=== PATIENT | female | born 1940 | race Caucasian/White ===

== ENCOUNTER 2016-11-03 05:54 | Day surgery (SDC) | payer MEDICARE, OTHER ==
[2016-11-03] MEDS ORDERED: DIPRIVAN 200 MG/20 ML IV ONE (05:55)
[2016-11-03] MEDS ORDERED: Lactated Ringers 1,000 ML IV SCH (06:30)
--- NOTE | 2016-11-03 08:27 | OP ---
SURGERY DATE/TIME: 11/03/2016714 PREOPERATIVE DIAGNOSIS: Follow up history of colon polyps. POSTOPERATIVE DIAGNOSES: 1) Normal colon. 2) Diffuse diverticulosis. 3) Poor bowel prep. PROCEDURE: Colonoscopy. SURGEON: Gera Lawrence M.D. ANESTHESIA: MAC. ESTIMATED BLOOD LOSS: None. SPECIMENS: None. DESCRIPTION OF PROCEDURE: After informed written consent was obtained, the patient was taken to the endoscopy suite. She underwent monitored anesthesia and digital rectal exam showed normal sphincter tone and no internal lesions. The scope was inserted into the rectum and sequentially the entire colonic mucosa was traversed. The exam was difficult due to the presence of stool and diffuse diverticulosis. The patient also had a long tortuous colon. The level of cecum was reached and verified with direct visualization of ileocecal valve. Upon withdrawal there were no gross mucosal abnormalities but again there was stool present throughout much of the exam. There were again no obvious lesions encountered. The scope was removed and the patient was transferred to the recovery room in good condition.
--- NOTE | 2016-11-03 09:56 | XRAY ---
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 Comparison: December 11, 2014. Portable apical lordotic chest less inflated again demonstrating normal heart, mediastinum, and lungs with stable right mid lung calcified granuloma. Bony thorax intact again with mild degenerative changes. Impression: Stable nonacute chest with chronic features.
[2016-11-03 10:17] VITALS: O2SAT 97
[2016-11-03 10:20] VITALS: BP 145/72; PULSE 80
[2016-11-05 14:25] LABS: Mitogen-NIL >10.00 IU/mL (>=0.50); TB-NIL <0.01 IU/mL (<=0.34); TuberculosisScr-Qferon-Gold Negative
== END 2016-11-03 10:30 | disposition home or self-care (01) ==
LOC: SDC 05:54
PROVIDERS: ATTEND Family Medicine
PROC: 0DJD8ZZ Inspection of Lower Intestinal Tract, Via Natural or Artificial Opening Endoscopic (ICD-10-PCS; principal; 2016-11-03)
DX: Z86.010 Personal history of colon polyps (principal); K57.30 Diverticulosis of large intestine without perforation or abscess without bleeding; E11.9 Type 2 diabetes mellitus without complications
CPT/HCPCS: 00810; 36415; 71010; 82962; 86480; 99100; J2704

== ENCOUNTER 2017-05-10 06:47 | Day surgery (SDC) | payer MEDICARE, OTHER ==
[2017-05-10] MEDS ORDERED: DIPRIVAN 200 MG/20 ML IV ONE (06:48)
[2017-05-10] MEDS ORDERED: Lactated Ringers 1,000 ML IV ONE (07:06)
[2017-05-10 07:30] VITALS: O2SAT 95
[2017-05-10] MEDS ORDERED: TETRACAINE 0.5% STERI-UNIT SOL OP ONE ×2 (08:00)
[2017-05-10] MEDS ORDERED: Ak-Dilate OPHTHALMIC*** 0.71 ML, Cyclogyl 1% OPHTH SOL 5 ML 0.71 ML, GATIFLOXACIN 0.5% ... OP ONE ×4 (08:00)
[2017-05-10] MEDS ORDERED: Lactated Ringers 1,000 ML IV SCH (08:00)
[2017-05-10] MEDS ORDERED: Zofran 4 MG/2 ML VIAL IV PRN (09:00)
[2017-05-10 12:50] VITALS: BP 166/64; PULSE 99
[2017-05-10] MEDS ORDERED: LIDOCAINE HCL 1% AMPUL 5 ML IJ ONE (13:30)
[2017-05-10] MEDS ORDERED: BSS 500 ML, Fortaz/Tazicef 1 GM** 0.2 G IO ONE ×2 (13:30)
[2017-05-10] MEDS ORDERED: BETADINE 5% OPHTHALMIC 30 ML OP ONE (13:30)
[2017-05-10] MEDS ORDERED: Epinephrine Preservative Free 1 MG/ML INTRAOP ONE (13:30)
--- NOTE | 2017-05-10 14:47 | OP ---
DATE/TIME OF OPERATION: 05/10/2017 0855 TIME DICTATED: 1247 PREOPERATIVE DIAGNOSIS: Senile cataract of left eye. POSTOPERATIVE DIAGNOSIS: Senile cataract of left eye. SURGEON: Edward Lovelace MD ORACLE ADF CONSULTANT: None. OPERATION: Cataract extraction of left eye with an intraocular lens implant. STANDARD __X___ COMPLEX ANESTHESIA: MAC. ___X___ Monitored anesthesia care in combination with topical and intra-cameral anesthesia (because of the established specific risk of reflux, arrhythmias, or an anxiety attack associated with ocular manipulation as well as difficulty of the sales assistants and salespersons to manage such potentially catastrophic events while simultaneously attempting to complete the surgical procedure, it was deemed necessary for the patient's safety to have an anesthesiologist or a nurse timber incisor operator present during the procedure whenever possible. The anesthesiologist or the nurse timber incisor operator was utilized to monitor and regulate the intravenous sedation of the patient, so the patient was cooperative, relaxed, and comfortable). Topical anesthesia using Tetracaine eye drops together with intra cameral anesthesia using Lidocaine 1% MPF. The nurse was utilized to monitor the patient. ANESTHESIA PROVIDER: Brennan Hewitt CRNA. COMPLICATIONS: None. BLOOD LOSS: None. INDICATIONS: The patient is undergoing cataract surgery in the hopes of eliminating the visual complaints and difficulty. PROCEDURE: After arriving at the facility's outpatient surgery area, an IV was started; the patient was given 5 mg of p.o. Versed. (If an anesthesia provider was not monitoring the patient) The patient was then given topical anesthetic Tetracaine eye drops. A cotton pellet was soaked into a solution of a combination of Zymaxid 0.5%, Edwardo-Synephrine 2.5% and Ocufen (other drops might have been substituted referenced in the patient's record). The pellet was inserted by the RN into the lower conjunctival cul-de-sac with a sterile forceps and left for 20 minutes. The pellet was then removed by the RN with a sterile forceps before taking the patient to the operating room. The preoperative area nurse identified the patient and marked the correct eye to be operated on. I identified the correct eye to be operated on and marked it appropriately in the outpatient surgery area. The patient was then taken into the operating room. Tetracaine eye drops were installed again in the correct eye. The eyelids and the lashes and the lid margins were scrubbed with Betadine solution. One drop of the diluted Betadine solution was placed in the conjunctival cul-de-sac for 45 seconds and then was irrigated. A drop of Tetracaine Gel was placed in the conjunctival cul-de-sac. The patient's forehead was taped to secure it during the procedure. The patient was monitored. The patient was then draped in the usual way for this procedure. An eye speculum was used to separate the eyelids. The eye was then fixated and a temporal 2.5 mm incision was made in the clear cornea temporally at the limbus. Through the incision, 0.25 cc of 1% non-preserved lidocaine was injected into the anterior chamber for intracameral anesthesia. The anterior chamber was then filled with viscoelastic. The pupil was small. I felt that it would be safer to mechanically dilate the pupil. A Malyugin ring was used at this point which dilated the pupil. That was removed at the end of the procedure prior to aspiration of the viscoelastic from the anterior chamber and posterior to the intraocular lens implant. The cataract had a great amount of cortical changes. That rendered seeing the anterior capsule difficult for a safe performance of an anterior capsulotomy. I injected an air bubble into the anterior chamber. I then injected 1 ML of vision blue solution into the anterior chamber. The vision blue solution was irrigated from the anterior chamber after 30 seconds. The anterior capsule was stained which facilitated performing the anterior capsulotomy safely. After that was completed, a cystotome was introduced into the anterior chamber and a round anterior capsulotomy was performed. The capsule was removed by a forceps. Hydrodissection was next carried utilizing a 25-gauge cannula and balanced salt solution to delineate the cortical material from the capsule and the nucleus from the cortical material. The nucleus was rotated freely into the capsular bag with no difficulty. The phaco tip of the [employer] Phacoemulsifier was introduced into the anterior chamber and two grooves were made into the nucleus 90 degrees apart. Using two spatulas resulted into the nucleus being fractured into four quadrants. The phaco tip was then used to remove each quadrant of the nucleus. Viscoelastic was used during this process to protect the corneal endothelium. Once the entire nucleus was removed, the phaco tip then was removed and the irrigation tip was introduced into the eye and the cortex was removed. The posterior capsule was polished. It was noticed that there was a tear into the posterior capsule with few vitreous strands into the pupil plan. An anterior vitrectomy was performed. A 27.50 diopter, SN60WF, posterior chamber lens implant, was inspected and found to be grossly normal. The implant was inserted into the implant injector cartridge; Viscoelastic again was introduced into the anterior chamber, which filled the capsular bag. The implant injector's cartridge tip was placed at the limbal wound and the posterior chamber implant was released into the capsular bag and rotated appropriately. The implant was found to be into the capsular bag and it was centered. __X___ 0.2 ml of Tri-Moxi was introduced via 27 gauge cannula into the vitreous cavity through the ciliary processes. Viscoelastic was aspirated from the anterior chamber and posterior to the intraocular lens implant from the capsular bag using the irrigating tip. The anterior chamber was irrigated and filled with 5 cc antibiotic solution (500 cc of BSS plus 2 ml of Fortaz 100 mg/ml) ( if patient was not allergic to the medication). The lips of the corneal incision were hydrated using BSS solution. The anterior chamber was checked and found to be water tight. One drop each of antibiotic, steroid and NSAID drops (refer to chart for drops used) were placed in the conjunctival cul-de-sac of the operated eye. Patient tolerated the procedure quite well and left the operating room in satisfactory condition. DISCHARGE SUMMARY: The patient was released in stable condition. The patient and those with the patient were given an instruction sheet as of how to care for the eye after surgery as well as counseling on any abnormal laboratory studies by the postoperative RN. The patient was also given an appointment card for follow-up in the office and is to call immediately for any difficulties including but not limited to pain in the eye, decreased vision, discharge from the eye, headache and or fever. DISCHARGE DIAGNOSIS: Pseudophakia of left eye.
== END 2017-05-10 10:30 | disposition home or self-care (01) ==
LOC: SDC 06:47
PROVIDERS: ATTEND Ophthalmology
PROC: 08RK3JZ Replacement of Left Lens with Synthetic Substitute, Percutaneous Approach (ICD-10-PCS; principal; 2017-05-10)
DX: H25.9 Unspecified age-related cataract (principal); E11.9 Type 2 diabetes mellitus without complications; E78.00 Pure hypercholesterolemia, unspecified; I10 Essential (primary) hypertension; K21.9 Gastro-esophageal reflux disease without esophagitis
CPT/HCPCS: 82962; 66984; C1780; 99100; J0171; J2704; A9270-GY

== ENCOUNTER 2017-06-07 07:05 | Day surgery (SDC) | payer MEDICARE, OTHER ==
[~2017-06-07 07:05] MED LIST: Lactated Ringers 1,000 ML IV SCH
[2017-06-07] MEDS ORDERED: DIPRIVAN 200 MG/20 ML IV ONE (07:06)
[2017-06-07] MEDS ORDERED: Lactated Ringers 1,000 ML IV ONE (07:10)
[2017-06-07] MEDS ORDERED: Ak-Dilate OPHTHALMIC*** 0.71 ML, Cyclogyl 1% OPHTH SOL 5 ML 0.71 ML, GATIFLOXACIN 0.5% ... OP ONE ×4 (08:00)
[2017-06-07] MEDS ORDERED: TETRACAINE 0.5% STERI-UNIT SOL OP ONE ×2 (08:00)
[2017-06-07] MEDS ORDERED: Lactated Ringers 1,000 ML IV SCH (08:00)
[2017-06-07] MEDS ORDERED: Zofran 4 MG/2 ML VIAL IV PRN (09:00)
[2017-06-07] MEDS ORDERED: LIDOCAINE HCL 1% AMPUL 5 ML IJ ONE (10:00)
[2017-06-07] MEDS ORDERED: BSS 500 ML, Fortaz/Tazicef 1 GM** 0.2 G IO ONE ×2 (10:00)
[2017-06-07] MEDS ORDERED: BETADINE 5% OPHTHALMIC 30 ML OP ONE (10:00)
[2017-06-07] MEDS ORDERED: Epinephrine Preservative Free 1 MG/ML INTRAOP ONE (10:00)
[2017-06-07 10:29] VITALS: O2SAT 98
[2017-06-07 10:50] VITALS: BP 153/70; PULSE 98
--- NOTE | 2017-06-07 15:09 | OP ---
DATE/TIME OF OPERATION: 06/07/2017 0931 TIME DICTATED: 1321 PREOPERATIVE DIAGNOSIS: Senile cataract of right eye. POSTOPERATIVE DIAGNOSIS: Senile cataract of right eye. SURGEON: Edward Lovelace MD GENOMICS SCIENTIST: None. OPERATION: Cataract extraction of right eye with an intraocular lens implant. STANDARD COMPLEX ___X___ ANESTHESIA: MAC. ___X___ Monitored anesthesia care in combination with topical and intra-cameral anesthesia (because of the established specific risk of reflux, arrhythmias, or an anxiety attack associated with ocular manipulation as well as difficulty of the equipment maintenance tech to manage such potentially catastrophic events while simultaneously attempting to complete the surgical procedure, it was deemed necessary for the patient's safety to have an anesthesiologist or a nurse honest john rocket crew member present during the procedure whenever possible. The anesthesiologist or the nurse honest john rocket crew member was utilized to monitor and regulate the intravenous sedation of the patient, so the patient was cooperative, relaxed, and comfortable). Topical anesthesia using Tetracaine eye drops together with intra cameral anesthesia using Lidocaine 1% MPF. The nurse was utilized to monitor the patient. ANESTHESIA PROVIDER: Jeffry Mahajan CRNA. COMPLICATIONS: None. BLOOD LOSS: None. INDICATIONS: The patient is undergoing cataract surgery in the hopes of eliminating the visual complaints and difficulty. PROCEDURE: After arriving at the facility's outpatient surgery area, an IV was started; the patient was given 5 mg of p.o. Versed. (If an anesthesia provider was not monitoring the patient) The patient was then given topical anesthetic Tetracaine eye drops. A cotton pellet was soaked into a solution of a combination of Zymaxid 0.5%, Edwardo-Synephrine 2.5% and Ocufen (other drops might have been substituted referenced in the patient's record). The pellet was inserted by the RN into the lower conjunctival cul-de-sac with a sterile forceps and left for 20 minutes. The pellet was then removed by the RN with a sterile forceps before taking the patient to the operating room. The preoperative area nurse identified the patient and marked the correct eye to be operated on. I identified the correct eye to be operated on and marked it appropriately in the outpatient surgery area. The patient was then taken into the operating room. Tetracaine eye drops were installed again in the correct eye. The eyelids and the lashes and the lid margins were scrubbed with Betadine solution. One drop of the diluted Betadine solution was placed in the conjunctival cul-de-sac for 45 seconds and then was irrigated. A drop of Tetracaine Gel was placed in the conjunctival cul-de-sac. The patient's forehead was taped to secure it during the procedure. The patient was monitored. The patient was then draped in the usual way for this procedure. An eye speculum was used to separate the eyelids. The eye was then fixated and a temporal 2.5 mm incision was made in the clear cornea temporally at the limbus. Through the incision, 0.25 cc of 1% non-preserved lidocaine was injected into the anterior chamber for intracameral anesthesia. The anterior chamber was then filled with viscoelastic. ___X__ The pupil was small. I felt that it would be safer to mechanically dilate the pupil. A Malyugin ring was used at this point which dilated the pupil. That was removed at the end of the procedure prior to aspiration of the viscoelastic from the anterior chamber and posterior to the intraocular lens implant. The cataract had a great amount of cortical changes. That rendered seeing the anterior capsule difficult for a safe performance of an anterior capsulotomy. I injected an air bubble into the anterior chamber. I then injected 1 ML of vision blue solution into the anterior chamber. The vision blue solution was irrigated from the anterior chamber after 30 seconds. The anterior capsule was stained which facilitated performing the anterior capsulotomy safely. After that was completed, a cystotome was introduced into the anterior chamber and a round anterior capsulotomy was performed. The capsule was removed by a forceps. Hydrodissection was next carried utilizing a 25-gauge cannula and balanced salt solution to delineate the cortical material from the capsule and the nucleus from the cortical material. The nucleus was rotated freely into the capsular bag with no difficulty. The phaco tip of the [place] [employer] Phacoemulsifier was introduced into the anterior chamber and two grooves were made into the nucleus 90 degrees apart. Using two spatulas resulted into the nucleus being fractured into four quadrants. The phaco tip was then used to remove each quadrant of the nucleus. Viscoelastic was used during this process to protect the corneal endothelium. Once the entire nucleus was removed, the phaco tip then was removed and the irrigation tip was introduced into the eye and the cortex was removed. The posterior capsule was polished. It was noticed that there was a tear into the posterior capsule with few vitreous strands into the pupil plan. An anterior vitrectomy was performed. A 26.00 diopter, SN60WF, posterior chamber lens implant, was inspected and found to be grossly normal. The implant was inserted into the implant injector cartridge; Viscoelastic again was introduced into the anterior chamber, which filled the capsular bag. The implant injector's cartridge tip was placed at the limbal wound and the posterior chamber implant was released into the capsular bag and rotated appropriately. The implant was found to be into the capsular bag and it was centered. __X___ 0.2 ml of Tri-Moxi was introduced via 27 gauge cannula into the vitreous cavity through the ciliary processes. Viscoelastic was aspirated from the anterior chamber and posterior to the intraocular lens implant from the capsular bag using the irrigating tip. The anterior chamber was irrigated and filled with 5 cc antibiotic solution (500 cc of BSS plus 2 ml of Fortaz 100 mg/ml) ( if patient was not allergic to the medication). The lips of the corneal incision were hydrated using BSS solution. The anterior chamber was checked and found to be water tight. One drop each of antibiotic, steroid and NSAID drops (refer to chart for drops used) were placed in the conjunctival cul-de-sac of the operated eye. Patient tolerated the procedure quite well and left the operating room in satisfactory condition. DISCHARGE SUMMARY: The patient was released in stable condition. The patient and those with the patient were given an instruction sheet as of how to care for the eye after surgery as well as counseling on any abnormal laboratory studies by the postoperative RN. The patient was also given an appointment card for follow-up in the office and is to call immediately for any difficulties including but not limited to pain in the eye, decreased vision, discharge from the eye, headache and or fever. DISCHARGE DIAGNOSIS: Pseudophakia of right eye.
== END 2017-06-07 11:05 | disposition home or self-care (01) ==
LOC: SDC 07:05
PROVIDERS: ATTEND Ophthalmology
PROC: 08RJ3JZ Replacement of Right Lens with Synthetic Substitute, Percutaneous Approach (ICD-10-PCS; principal; 2017-06-07)
PROC: 08B43ZZ Excision of Right Vitreous, Percutaneous Approach (ICD-10-PCS; 2017-06-07)
DX: H25.9 Unspecified age-related cataract (principal); E11.9 Type 2 diabetes mellitus without complications; Z79.4 Long term (current) use of insulin; E78.00 Pure hypercholesterolemia, unspecified
CPT/HCPCS: 66982; 67005; 82962; C1780; 99100; J0171; J2704; A9270-GY

== ENCOUNTER 2018-01-15 18:11 | Observation (INO) | payer MEDICARE ==
--- NOTE | 2018-01-15 18:44 | ERPHSYRPT ---
- History of Present Illness Historian: patient, family (daughter) Exam Limitations: no limitations Patient Subjective Stated Complaint: pt here for n/v/d , higher blood sugars but pt is on predinsone for pain in legs, sob worse with excertion, Triage Nursing Assessment: pt alert, resp easy, chest clear, abd soft. no edema Timing/Duration: today, gradual onset, worse Activities at Onset: none Quality: aching, cramping Abdominal Pain Onset Location: epigastric Pain Radiation: no radiation Severity of Pain-Max: mild Severity of Pain-Current: mild Modifying Factors: Improves With: defecating, vomiting Associated Symptoms: diarrhea, nausea, vomiting, weakness Previous symptoms: no prior history Hx Influenza Vaccination/Date Given: Yes Hx Pneumococcal Vaccination/Date Given: Yes Immunizations Up to Date: Yes <RAVEN SHELDON - Last Filed: 01/15/18 19:02> <EVANS GONZALEZ - Last Filed: 01/15/18 20:14> - History of Present Illness Time Seen by Provider: 01/15/18 18:31 Physician History: The patient is a 77-year-old female brought in by her daughter from home where this morning she woke up at 4 AM with a blood sugar of 32. She tried to get her blood sugar up. Later in the morning she was nauseated and vomited. She has vomited several times today. She also has some watery stools. Her abdomen is uncomfortable and feels crampy at times. Her daughter states that she has some labored breathing. She has lightheadedness upon standing. She denies chest pain. She denies fever. She has been on prednisone for several months for muscle pain. She is now down to 8 mg of prednisone daily. Her past medical history is significant for HTN, diabetes, high cholesterol. She has a tubal ligation. (RAVEN SHELDON) Allergies/Adverse Reactions: Sulfa (Sulfonamide Antibiotics) Allergy (Severe, Verified 01/15/18 18:26) Rash Home Medications: Aspirin EC 81 mg [Ecotrin 81 mg] 81 mg PO DAILY 11/02/16 [History] Ca Citrate/Mgox/Vit D3/B6/Min [Citracal Plus Tablet] 1 each PO DAILY 11/02/16 [ History] Cyanocobalamin (Vitamin B-12) [B-12] 1,000 mcg PO DAILY 11/02/16 [History] Esomeprazole Magnesium [Nexium] 20 mg PO DAILY 11/02/16 [History] Insulin Aspart [Novolog Flexpen] 10 unit SQ TIDWMEALS 11/02/16 [History] Insulin Detemir [Levemir Flextouch] 55 unit SQ HS 11/02/16 [History] Losartan Potassium 50 mg [Cozaar 50 MG] 50 mg PO BID 11/02/16 [History] Multivitamin [Multi-Vitamin Daily] 1 ea PO DAILY 11/02/16 [History] Raloxifene HCl 60 mg [Evista 60 MG] 60 mg PO DAILY 11/02/16 [History] Rosuvastatin Calcium [Crestor] 10 mg PO HS 11/02/16 [History] Gabapentin 300 mg PO TID 05/09/17 [History] - Review of Systems Constitutional: No Fever, No Chills Eyes: No Symptoms Ears, Nose, & Throat: No Symptoms Respiratory: No Cough, No Dyspnea Cardiac: No Chest Pain, No Edema, No Syncope Abdominal/Gastrointestinal: Abdominal Pain, Nausea, Vomiting, Diarrhea Genitourinary Symptoms: No Dysuria Musculoskeletal: No Back Pain, No Neck Pain Skin: No Rash Neurological: No Dizziness, No Focal Weakness, No Sensory Changes Psychological: No Symptoms Endocrine: No Symptoms Hematologic/Lymphatic: No Symptoms Immunological/Allergic: No Symptoms All Other Systems: Reviewed and Negative <RAVEN SHELDON - Last Filed: 01/15/18 19:02> - Past Medical History Pertinent Past Medical History: Yes Neurological History: No Pertinent History ENT History: Cataracts Cardiac History: High Cholesterol, Hypertension Respiratory History: No Pertinent History Endocrine Medical History: Diabetes Type II Musculoskeletal History: Arthritis GI Medical History: GERD, Hernia History: Other Psycho-Social History: No Pertinent History Female Reproductive Disorders: No Pertinent History Other Medical History: urinary incontinence - Past Surgical History Past Surgical History: Yes Neuro Surgical History: No Pertinent History Cardiac: No Pertinent History Respiratory: No Pertinent History Gastrointestinal: No Pertinent History Genitourinary: No Pertinent History Musculoskeletal: Other Female Surgical History: Tubal Ligation Other Surgical History: back,hand, egd with dilitation, bilateral feet - Social History Smoking Status: Former smoker Exposure to second hand smoke: No Drug Use: none Patient Lives Alone: No - Female History Hx Last Menstrual Period: post Hx Now: No <RAVEN SHELDON - Last Filed: 01/15/18 19:02> - Physical Exam General Appearance: mild distress Eye Exam: PERRL/EOMI, eyes nml inspection Ears, Nose, Throat Exam: normal ENT inspection, pharynx normal, moist mucous membranes Neck Exam: normal inspection, non-tender, supple, full range of motion Respiratory Exam: normal breath sounds, lungs clear, No respiratory distress Cardiovascular Exam: regular rate/rhythm, normal heart sounds Gastrointestinal/Abdomen Exam: tenderness (epigastric) Pelvic Exam: not done Rectal Exam: not done Back Exam: normal inspection, normal range of motion, No CVA tenderness, No vertebral tenderness Extremity Exam: normal inspection, normal range of motion, pelvis stable Neurologic Exam: alert, oriented x 3, cooperative, normal mood/affect, nml cerebellar function, sensation nml, No motor deficits Skin Exam: normal color, warm, dry SpO2 Interpretation: normal SpO2: 94 Oxygen Delivery: Room Air <RAVEN SHELDON - Last Filed: 01/15/18 19:02> - Nursing Vital Signs Nursing Vital Signs: Initial Vital Signs Temperature 97.4 F 01/15/18 18:19 Pulse Rate 130 H 01/15/18 18:19 Respiratory Rate 24 01/15/18 18:19 Blood Pressure 132/72 01/15/18 18:19 O2 Sat by Pulse Oximetry 94 L 01/15/18 18:19 Pain Scale Pain Intensity 5 - Course EKG Interpreted by Me: RATE, Sinus Tach, Left [place] Deviation, LAFB, NORMAL INTERVALS, NORMAL QRS, NORMAL ST-T, Other (comp EKG 08/13/13.) <RAVEN SHELDON - Last Filed: 01/15/18 19:02> - Course Nursing assessment & vital signs reviewed: Yes <EVANS GONZALEZ - Last Filed: 01/15/18 20:14> Ordered Tests: Active Orders 24 hr Category Date Time Status ACCUCHECK [Accucheck] STAT Care 01/15/18 18:49 Active Clean Catch Urine Specimen STAT Care 01/15/18 18:47 Active EKG-ER Only STAT Care 01/15/18 18:47 Active IV Insertion STAT Care 01/15/18 18:47 Active Orthostatic Vital Signs STAT Care 01/15/18 18:49 Active CHEST 2 VIEWS (PA AND LAT) Stat Exams 01/15/18 18:48 Taken KUB Stat Exams 01/15/18 18:48 Taken ARTERIAL BLOOD GASES Urgent Lab 01/15/18 19:05 Completed CBC W DIFF Stat Lab 01/15/18 18:45 Completed CMP Stat Lab 01/15/18 18:45 Completed CULTURE,URINE Stat Lab 01/15/18 19:35 Received D-DIMER QUANTITATION Stat Lab 01/15/18 18:45 Completed LIPASE Stat Lab 01/15/18 18:45 Completed Lactic Acid Stat Lab 01/15/18 19:05 Completed Manual Differential NC Stat Lab 01/15/18 18:45 Completed PROTIME WITH INR Stat Lab 01/15/18 18:45 Completed TROPONIN Q3H Lab 01/15/18 18:45 Completed TROPONIN Q3H Lab 01/15/18 22:00 Ordered TROPONIN Q3H Lab 01/16/18 01:00 Ordered TROPONIN Q3H Lab 01/16/18 04:00 Ordered TROPONIN Q3H Lab 01/16/18 07:00 Ordered UA W/RFX UR CULTURE Stat Lab 01/15/18 19:35 Completed Transfer Order Routine Transfer 01/15/18 Ordered Medication Summary Generic Name Dose Route Start Last Admin Trade Name Freq PRN Reason Stop Dose Admin Ceftriaxone Sodium/Dextrose 1 g in 50 mls @ 100 mls/hr 01/15/18 19:56 20:02 Rocephin 1 Gm-D5w 50 Ml Bag IV 01/15/18 20:25 100 mls/hr STAT STA 100 mls/hr Administration Discontinued Medications Generic Name Dose Route Start Last Admin Trade Name Freq PRN Reason Stop Dose Admin Famotidine 20 mg 01/15/18 18:47 01/15/18 19:09 Pepcid 20 Mg Vial IV 01/15/18 18:48 20 mg STAT ONE Administration Famotidine Confirm 01/15/18 19:06 Pepcid 20 Mg Vial Administered 01/15/18 19:07 Dose 20 mg IV .STK-MED ONE Sodium Chloride 1,000 mls @ 999 mls/hr 01/15/18 18:47 01/15/18 19:09 Sodium Chloride 0.9% 1000 Ml IV 01/15/18 19:47 999 mls/hr .Q1H1M STA Administration Sodium Chloride Confirm 01/15/18 19:06 Sodium Chloride 0.9% 1000 Ml Administered 01/15/18 19:07 Dose 1,000 mls @ ud .ROUTE .STK-MED ONE Ceftriaxone Sodium/Dextrose Confirm 01/15/18 19:59 Rocephin 1 Gm-D5w 50 Ml Bag Administered 01/15/18 20:00 Dose 1 g in 50 mls @ ud IV .STK-MED ONE Levofloxacin 500 mg 01/15/18 20:06 Levofloxacin 250mg Tablet PO 01/15/18 20:07 STAT ONE Ondansetron HCl 4 mg 01/15/18 18:47 01/15/18 19:09 Zofran 4 Mg/2 Ml Vial IV 01/15/18 18:48 4 mg STAT ONE Administration Ondansetron HCl Confirm 01/15/18 19:06 Zofran 4 Mg/2 Ml Vial Administered 01/15/18 19:07 Dose 4 mg .ROUTE .STK-MED ONE Lab/Rad Data: Laboratory Result Diagrams 01/15/18 18:45 01/15/18 18:45 Laboratory Results 01/15/18 01/15/18 01/15/18 Range/Units 19:35 19:05 19:05 WBC (4.0-10.5) K/mm3 RBC (4.1-5.4) M/mm3 Hgb (12.0-16.0) gm/dl Hct (35-47) % MCV (78-100) fl MCH (26-32) pg MCHC (32-36) g/dl RDW (11.5-14.0) % Plt Count (150-450) K/mm3 MPV (6-9.5) fl Gran % (36.0-66.0) % Eos # (Auto) (0-0.5) Absolute Lymphs (auto) (1.0-4.6) Absolute Monos (auto) (0.0-1.3) Lymphocytes % (24.0-44.0) % Monocytes % (0.0-12.0) % Eosinophils % (0.00-5.0) % Basophils % (0.0-0.4) % Absolute Granulocytes (1.4-6.9) Basophils # (0-0.4) PT (9.95-12.35) SECONDS INR (0.8-3.0) D-Dimer (215-500) ng/mL Puncture Site LEFT RADIAL pCO2 35 (35-45) mmHg pO2 63 L (75-100) mmHg Base Excess 2.8 H (-2.0-2.0) O2 Saturation 93.5 L (94-100) g/dF ABG pH 7.48 H (7.35-7.45) ABG HCO3 26.1 (22-28) ABG O2 Sat (Measured) 95.6 (95-100) % Miguel Test YES A-a Gradient 43 a/A Ratio 0.59 Hemoglobin 14.2 Carboxyhemoglobin 1.6 (0.0-6.9) % THgb Methemoglobin 0.7 L (1.4-1.5) % Temperature 37.0 C POC O2 Flow Rate 21 % Sodium (137-145) mmol/L Potassium 3.9 (3.5-5.1) mmol/L Chloride (98-107) mmol/L Carbon Dioxide (22-30) mmol/L Anion Gap (5-15) MEQ/L BUN (7-17) mg/dL Creatinine (0.52-1.04) mg/dL Estimated GFR ML/MIN Glucose (74-106) mg/dL Lactic Acid 1.6 (0.4-2.0) Calcium (8.4-10.2) mg/dL Total Bilirubin (0.2-1.3) mg/dL AST (14-36) U/L ALT (0-35) U/L Alkaline Phosphatase (38-126) U/L Troponin I (0.000-0.034) ng/mL Serum Total Protein (6.3-8.2) g/dL Albumin (3.5-5.0) g/dL Lipase (23-300) U/L Urine Color YELLOW (YELLOW) Urine Appearance CLOUDY (CLEAR) Urine pH 6.0 (5-6) Ur Specific Shirley 1.009 (1.005-1.025) Urine Protein NEGATIVE (Negative) Urine Ketones NEGATIVE (NEGATIVE) Urine Blood MODERATE (0-5) Luís/ul Urine Nitrite POSITIVE (NEGATIVE) Urine Bilirubin NEGATIVE (NEGATIVE) Urine Urobilinogen NEGATIVE (0-1) mg/dL Ur Leukocyte Esterase LARGE (NEGATIVE) Urine WBC (Auto) >100 (0-5) /HPF Urine RBC (Auto) 26-50 (0-2) /HPF U Epithel Cells (Auto) NONE (FEW) /HPF Urine Bacteria (Auto) MODERATE (NEGATIVE) /HPF Unidentified Crystals 25-50 (NEGATIVE) /HPF Other Casts (Auto) 5-10 (NEGATIVE) /LPF Urine Mucus (Auto) MODERATE (NEGATIVE) /HPF Urine Culture Reflexed YES (NO) Urine Glucose NEGATIVE (NEGATIVE) mg/dL 01/15/18 01/15/18 01/15/18 Range/Units 18:45 18:45 18:45 WBC (4.0-10.5) K/mm3 RBC (4.1-5.4) M/mm3 Hgb (12.0-16.0) gm/dl Hct (35-47) % MCV (78-100) fl MCH (26-32) pg MCHC (32-36) g/dl RDW (11.5-14.0) % Plt Count (150-450) K/mm3 MPV (6-9.5) fl Gran % (36.0-66.0) % Eos # (Auto) (0-0.5) Absolute Lymphs (auto) (1.0-4.6) Absolute Monos (auto) (0.0-1.3) Lymphocytes % (24.0-44.0) % Monocytes % (0.0-12.0) % Eosinophils % (0.00-5.0) % Basophils % (0.0-0.4) % Absolute Granulocytes (1.4-6.9) Basophils # (0-0.4) PT 13.0 H (9.95-12.35) SECONDS INR 1.12 (0.8-3.0) D-Dimer 412 (215-500) ng/mL Puncture Site pCO2 (35-45) mmHg pO2 (75-100) mmHg Base Excess (-2.0-2.0) O2 Saturation (94-100) g/dF ABG pH (7.35-7.45) ABG HCO3 (22-28) ABG O2 Sat (Measured) (95-100) % Miguel Test A-a Gradient a/A Ratio Hemoglobin Carboxyhemoglobin (0.0-6.9) % THgb Methemoglobin (1.4-1.5) % Temperature C POC O2 Flow Rate % Sodium (137-145) mmol/L Potassium (3.5-5.1) mmol/L Chloride (98-107) mmol/L Carbon Dioxide (22-30) mmol/L Anion Gap (5-15) MEQ/L BUN (7-17) mg/dL Creatinine (0.52-1.04) mg/dL Estimated GFR ML/MIN Glucose (74-106) mg/dL Lactic Acid (0.4-2.0) Calcium (8.4-10.2) mg/dL Total Bilirubin (0.2-1.3) mg/dL AST (14-36) U/L ALT (0-35) U/L Alkaline Phosphatase (38-126) U/L Troponin I < 0.012 (0.000-0.034) ng/mL Serum Total Protein (6.3-8.2) g/dL Albumin (3.5-5.0) g/dL Lipase (23-300) U/L Urine Color (YELLOW) Urine Appearance (CLEAR) Urine pH (5-6) Ur Specific Shirley (1.005-1.025) Urine Protein (Negative) Urine Ketones (NEGATIVE) Urine Blood (0-5) Luís/ul Urine Nitrite (NEGATIVE) Urine Bilirubin (NEGATIVE) Urine Urobilinogen (0-1) mg/dL Ur Leukocyte Esterase (NEGATIVE) Urine WBC (Auto) (0-5) /HPF Urine RBC (Auto) (0-2) /HPF U Epithel Cells (Auto) (FEW) /HPF Urine Bacteria (Auto) (NEGATIVE) /HPF Unidentified Crystals (NEGATIVE) /HPF Other Casts (Auto) (NEGATIVE) /LPF Urine Mucus (Auto) (NEGATIVE) /HPF Urine Culture Reflexed (NO) Urine Glucose (NEGATIVE) mg/dL 01/15/18 01/15/18 Range/Units 18:45 18:45 WBC 26.7 H* (4.0-10.5) K/mm3 RBC 4.30 (4.1-5.4) M/mm3 Hgb 13.6 (12.0-16.0) gm/dl Hct 40.1 (35-47) % MCV 93.3 (78-100) fl MCH 31.6 (26-32) pg MCHC 33.9 (32-36) g/dl RDW 12.9 (11.5-14.0) % Plt Count 246 (150-450) K/mm3 MPV 10.1 H (6-9.5) fl Gran % 79.2 H (36.0-66.0) % Eos # (Auto) 0.34 (0-0.5) Absolute Lymphs (auto) 3.65 (1.0-4.6) Absolute Monos (auto) 1.53 H (0.0-1.3) Lymphocytes % 13.7 L (24.0-44.0) % Monocytes % 5.7 (0.0-12.0) % Eosinophils % 1.3 (0.00-5.0) % Basophils % 0.1 (0.0-0.4) % Absolute Granulocytes 21.17 H (1.4-6.9) Basophils # 0.03 (0-0.4) PT (9.95-12.35) SECONDS INR (0.8-3.0) D-Dimer (215-500) ng/mL Puncture Site pCO2 (35-45) mmHg pO2 (75-100) mmHg Base Excess (-2.0-2.0) O2 Saturation (94-100) g/dF ABG pH (7.35-7.45) ABG HCO3 (22-28) ABG O2 Sat (Measured) (95-100) % Miguel Test A-a Gradient a/A Ratio Hemoglobin Carboxyhemoglobin (0.0-6.9) % THgb Methemoglobin (1.4-1.5) % Temperature C POC O2 Flow Rate % Sodium 138 (137-145) mmol/L Potassium 4.2 (3.5-5.1) mmol/L Chloride 103 (98-107) mmol/L Carbon Dioxide 26 (22-30) mmol/L Anion Gap 12.7 (5-15) MEQ/L BUN 14 (7-17) mg/dL Creatinine 0.78 (0.52-1.04) mg/dL Estimated GFR > 60.0 ML/MIN Glucose 223 H (74-106) mg/dL Lactic Acid (0.4-2.0) Calcium 9.2 (8.4-10.2) mg/dL Total Bilirubin 0.50 (0.2-1.3) mg/dL AST 31 (14-36) U/L ALT 26 (0-35) U/L Alkaline Phosphatase 69 (38-126) U/L Troponin I (0.000-0.034) ng/mL Serum Total Protein 6.3 (6.3-8.2) g/dL Albumin 3.8 (3.5-5.0) g/dL Lipase 78 (23-300) U/L Urine Color (YELLOW) Urine Appearance (CLEAR) Urine pH (5-6) Ur Specific Shirley (1.005-1.025) Urine Protein (Negative) Urine Ketones (NEGATIVE) Urine Blood (0-5) Luís/ul Urine Nitrite (NEGATIVE) Urine Bilirubin (NEGATIVE) Urine Urobilinogen (0-1) mg/dL Ur Leukocyte Esterase (NEGATIVE) Urine WBC (Auto) (0-5) /HPF Urine RBC (Auto) (0-2) /HPF U Epithel Cells (Auto) (FEW) /HPF Urine Bacteria (Auto) (NEGATIVE) /HPF Unidentified Crystals (NEGATIVE) /HPF Other Casts (Auto) (NEGATIVE) /LPF Urine Mucus (Auto) (NEGATIVE) /HPF Urine Culture Reflexed (NO) Urine Glucose (NEGATIVE) mg/dL <RAVEN SHELDON - Last Filed: 01/15/18 19:02> - Progress Progress: improved, re-examined Discussed with : Dipesh Will see patient in: hospital (observation) Counseled pt/family regarding: lab results, diagnosis, rad results <EVANS GONZALEZ - Last Filed: 01/15/18 20:14> - Progress Progress Note: 01/15/18 19:02 Pt care discussed and care transferred to Dr Gonzalez at 19:00. (RAVEN SHELDON) 01/15/18 20:01 pt states she is feeling better. no cp, no abd pain. headache improving. spoke to Dr. le who is covering for pts pcp dr. tovar. i reviewed pt hx, condition, lab and xray results. he accepts pt to place in observation. pt is on steroids so part of elevated wbc is secondary to this. 01/15/18 20:05 (EVANS GONZALEZ) <RAVEN SHELDON - Last Filed: 01/15/18 19:02> - Departure Time of Disposition: 20:05 Departure Disposition: Observation Critical Care Time: No <EVANS GONZALEZ - Last Filed: 01/15/18 20:14> - Departure Clinical Impression: UTI (urinary tract infection), Fever Condition: Stable Referrals: UNA TOVAR [Primary Care Provider] -
[2018-01-15] MEDS ORDERED: Zofran 4 MG/2 ML VIAL IV ONE (18:47)
[2018-01-15] MEDS ORDERED: Sodium Chloride 0.9% 1000 ML 1,000 ML IV STA (18:47)
[2018-01-15] MEDS ORDERED: Pepcid 20 MG VIAL IV ONE ×2 (18:47→19:06)
[2018-01-15 18:57] LABS: BASOPHIL % 0.1 % (0.0-0.4); Basophil (Absolute #) 0.03 (0-0.4); Eosinophil % 1.3 % (0.00-5.0); Eosinophil (Absolute #) 0.34 (0-0.5); Granulocyte Absolute (ANC) 21.17 (1.4-6.9); Granulocytes % 79.2 % (36.0-66.0); Hematocrit 40.1 % (35-47); Hemoglobin 13.6 gm/dl (12.0-16.0); Lymphocyte (Absolute #) 3.65 (1.0-4.6); Lymphocytes % 13.7 % (24.0-44.0); Mean Cell Volume 93.3 fl (78-100); Mean Corpuscular Hemoglobin 31.6 pg (26-32); Mean Corpuscular Hgb Concent. 33.9 g/dl (32-36); Mean Platelet Volume 10.1 fl (6-9.5); Monocyte (Absolute #) 1.53 (0.0-1.3); Monocytes % 5.7 % (0.0-12.0); Platelet Count 246 K/mm3 (150-450); Red Cell Distribution Width 12.9 % (11.5-14.0)
[2018-01-15 19:06] LABS: INR 1.12 (0.8-3.0)
[2018-01-15] MEDS ORDERED: Sodium Chloride 0.9% 1000 ML 1,000 ML ONE (19:06)
[2018-01-15] MEDS ORDERED: Zofran 4 MG/2 ML VIAL ONE (19:06)
[2018-01-15 19:16] LABS: A-aADO2 43; ABG HEMOGLOBIN 14.2; ABG POTASSIUM 3.9 (3.5-5.1); ARTERIAL BLD GAS O2 SATURATION 95.6 % (95-100); ARTERIAL BLOOD GAS BASE EXCESS 2.8 (-2.0-2.0); ARTERIAL BLOOD GAS FIO2 21 %; ARTERIAL BLOOD GAS PCO2 35 mmHg (35-45); ARTERIAL BLOOD GAS PO2 63 mmHg (75-100); ARTERIAL BLOOD GAS pH 7.48 (7.35-7.45); CARBOXYHEMOGLOBIN 1.6 % THgb (0.0-6.9); HCO3- 26.1 (22-28); HGB O2 SAT 93.5 g/dF (94-100); Methhemoglobin 0.7 % (1.4-1.5); paO2 pAO1 0.59
[2018-01-15 19:17] LABS: ABG SITE LEFT RADIAL; ALLEN TEST OK? YES
[2018-01-15 19:27] LABS: White Blood Count 26.7 K/mm3 (4.0-10.5)
[2018-01-15 19:45] LABS: ALBUMIN 3.8 g/dL (3.5-5.0); ALKALINE PHOSPHATASE 69 U/L (38-126); ANION GAP 12.7 MEQ/L (5-15); BLOOD UREA NITROGEN 14 mg/dL (7-17); CHLORIDE 103 mmol/L (98-107); Calcium 9.2 mg/dL (8.4-10.2); Carbon Dioxide 26 mmol/L (22-30); Creatinine 1 0.78 mg/dL (0.52-1.04); Glucose 223 mg/dL (74-106); LIPASE 78 U/L (23-300); Potassium 4.2 mmol/L (3.5-5.1); SGOT/AST 31 U/L (14-36); SGPT/ALT 26 U/L (0-35); SODIUM 138 mmol/L (137-145); Total Protein 6.3 g/dL (6.3-8.2)
[2018-01-15 19:51] LABS: Appearance CLOUDY (CLEAR); Bilirubin NEGATIVE (NEGATIVE); Blood MODERATE Ery/ul (0-5); Glucose NEGATIVE (NEGATIVE); Ketones NEGATIVE (NEGATIVE); Leukocyte Esterase LARGE (NEGATIVE); Nitrite POSITIVE (NEGATIVE); Protein,Urine Dip NEGATIVE (Negative); Specific Gravity 1.009 (1.005-1.025); Urobilinogen NEGATIVE mg/dL (0-1)
[2018-01-15] MEDS ORDERED: ROCEPHIN 1 Gm-D5w 50 ml Bag** 1 G/50 ML IVPB IV STA (19:56)
[2018-01-15] MEDS ORDERED: ROCEPHIN 1 Gm-D5w 50 ml Bag** 1 G/50 ML IVPB IV ONE (19:59)
[2018-01-15] MEDS ORDERED: Levofloxacin 250MG Tablet PO ONE (20:06)
[2018-01-15] MEDS ORDERED: Levofloxacin 250MG Tablet ONE (20:17)
[2018-01-15 20:19] LABS: BAND 15 % (0.0-2.0); Eosinophil 2 % (0.00-3.0); Lymphocytes 15 % (24-44); Monocyte 7 % (0.0-12.0); Neutrophils 61 % (36.0-66.0); Total Cells Counted 100
[2018-01-15] MEDS ORDERED: TYLENOL 325 MG ONE (20:21)
[2018-01-15] MEDS ORDERED: TYLENOL 325 MG PO STA (20:22)
[2018-01-15 20:56] LABS: ANISOCYTOSIS 1+; Platelet Estimate NORMAL (NORMAL)
[2018-01-15 20:57] LABS: Poikilocytosis 1+
[2018-01-15] MEDS ORDERED: TYLENOL 325 MG PO PRN (21:17)
[2018-01-15] MEDS ORDERED: NovoLOG Insulin SQ PRN (21:17)
[2018-01-15] MEDS ORDERED: Zofran 4 MG/2 ML VIAL IV PRN (21:17)
[2018-01-16] MEDS: Sodium Chloride 0.9% 1000 ML 1,000 ML IV SCH ×2 (02:08→22:00)
[2018-01-16 04:18] LABS: BASOPHIL % 0.1 % (0.0-0.4); Basophil (Absolute #) 0.02 (0-0.4); Eosinophil % 1.2 % (0.00-5.0); Eosinophil (Absolute #) 0.23 (0-0.5); Granulocyte Absolute (ANC) 14.43 (1.4-6.9); Granulocytes % 73.4 % (36.0-66.0); Hematocrit 34.8 % (35-47); Hemoglobin 11.5 gm/dl (12.0-16.0); Lymphocyte (Absolute #) 3.88 (1.0-4.6); Lymphocytes % 19.7 % (24.0-44.0); Mean Cell Volume 95.3 fl (78-100); Mean Corpuscular Hemoglobin 31.5 pg (26-32); Mean Platelet Volume 9.7 fl (6-9.5); Monocytes % 5.6 % (0.0-12.0); Platelet Count 208 K/mm3 (150-450); Red Blood Count 3.65 M/mm3 (4.1-5.4); Red Cell Distribution Width 12.9 % (11.5-14.0); White Blood Count 19.7 K/mm3 (4.0-10.5)
[2018-01-16 04:36] LABS: ANION GAP 9.5 MEQ/L (5-15); BLOOD UREA NITROGEN 14 mg/dL (7-17); CHLORIDE 106 mmol/L (98-107); Calcium 8.2 mg/dL (8.4-10.2); Carbon Dioxide 27 mmol/L (22-30); Creatinine 1 0.79 mg/dL (0.52-1.04); Glucose 162 mg/dL (74-106); Potassium 4.1 mmol/L (3.5-5.1); SODIUM 138 mmol/L (137-145)
--- NOTE | 2018-01-16 08:28 | PCM.HP ---
History of Present Illness - Chief Complaint Chief Complaint: uti Date: 01/16/18 History of Present Illness: is a 77 year old female. who awoke yesterday with nausea and vomiting and 1 episode of loose stool. she was very fatigued. when she initially awoke her blood sugar was only 38. She tried to eat and drink but had difficulty. She did not eat much all day and became more nauseated and weak and eventually her son came by and made her go to the hospital. she was hydrated and given antibiotics last night and is feeling much better this am. still a little weak but tolerated her breakfast this am. - Review of Systems Constitutional: Chills, Fatigue, No Fever Eyes: No Symptoms Ears, Nose, & Throat: No Symptoms Respiratory: No Cough, No Short Of Breath Cardiac: No Chest Pain, No Edema, No Syncope Abdominal/Gastrointestinal: Abdominal Pain, Nausea, Vomiting, Diarrhea Genitourinary Symptoms: Frequency, Urgency, No Dysuria Musculoskeletal: No Back Pain, No Neck Pain Skin: No Rash Neurological: No Dizziness, No Focal Weakness, No Sensory Changes Psychological: No Symptoms Endocrine: No Symptoms Hematologic/Lymphatic: No Symptoms Immunological/Allergic: No Symptoms Medications & Allergies Home Medications: Home Medication List Aspirin EC 81 mg [Ecotrin 81 mg] 81 mg PO DAILY 11/02/16 [History Confirmed 01/15/18] Cyanocobalamin (Vitamin B-12) [B-12] 1,000 mcg PO DAILY 11/02/16 [History Confirmed 01/15/18] Esomeprazole Magnesium [Nexium] 40 mg PO DAILY 11/02/16 [History Confirmed 01/15] Insulin Aspart [Novolog Flexpen] 10 unit SQ [id number] 11/02/16 [History Confirmed 01/15/18] Insulin Detemir [Levemir Flextouch] 45 unit SQ HS 11/02/16 [History Confirmed ] Losartan Potassium 50 mg [Cozaar 50 MG] 50 mg PO BID 11/02/16 [History Confirmed 01/15/18] Multivitamin [Multi-Vitamin Daily] 1 ea PO DAILY 11/02/16 [History Confirmed ] Raloxifene HCl 60 mg [Evista 60 MG] 60 mg PO DAILY 11/02/16 [History Confirmed 01/15/18] Rosuvastatin Calcium [Crestor] 10 mg PO HS 11/02/16 [History Confirmed 01/15/18] Gabapentin 300 mg PO TID 05/09/17 [History Confirmed 01/15/18] Prednisone 5 mg [Deltasone 5 mg] 5 mg PO DAILY 01/15/18 [History Confirmed 01/15/18] Trazodone HCl 50 mg [Desyrel 50 mg] 50 mg PO QHS 01/15/18 [History Confirmed 01/15/18] predniSONE [Prednisone] 3 mg PO DAILY 01/15/18 [History Confirmed 01/15/18] Allergies/Adverse Reactions: Allergies Allergy/AdvReac Type Severity Reaction Status Date / Time Sulfa (Sulfonamide Allergy Severe Rash Verified 01/15/18 18:26 Antibiotics) - Past Medical History Past Medical History: Yes Neurological History: No Pertinent History ENT History: Cataracts Cardiac History: High Cholesterol, Hypertension Respiratory History: No Pertinent History Endocrine Medical History: Diabetes Type II Musculoskelatal History: Arthritis GI Medical History: GERD, Hernia History: Other Pyscho-Social History: No Pertinent History Reproductive Disorders: No Pertinent History Comment: Polymyalgia rheumatatic - Female History Hx Last Menstrual Period: post Are you now?: No - Past Surgical History Past Surgical History: Yes Neuro Surgical History: No Pertinent History Cardiac History: No Pertinent History Respiratory Surgery: No Pertinent History GI Surgical History: No Pertinent History Genitourinary Surgical Hx: No Pertinent History Musculskeletal Surgical Hx: Other Female Surgical History: Tubal Ligation Other Surgical History: back,hand, egd with dilitation, bilateral feet - Social History Smoking Status: Former smoker Exposure to second hand smoke: No Alcohol: None Drug Use: none - Physical Exam Vital Signs: Vital Signs - 24 hr Temp Pulse Resp BP Pulse Ox 01/16/18 07:35 98.8 F 95 H 17 99/48 97 01/16/18 06:41 97 01/16/18 04:00 98.7 F 105 H 16 110/56 97 01/16/18 00:00 99.0 F 108 H 18 100/50 98 01/15/18 22:21 97 01/15/18 21:33 99.7 F 115 H 18 102/49 95 01/15/18 19:56 122 H 18 103/53 98 01/15/18 19:03 94 L 01/15/18 19:01 121 H 27 H 108/61 93 L 01/15/18 18:19 97.4 F 130 H 24 132/72 94 L Oxygen-Last 24 hours O2 Percentage 2 Liters = 28% O2 Percentage 2 Liters = 28% O2 Percentage 2 Liters = 28% O2 Percentage 2 Liters = 28% O2 Percentage 2 Liters = 28% Oxygen Flowrate (L/min)-RT 2 Oxygen Flowrate (L/min)-RT 2 Oxygen Flowrate (L/min)-RT 2 General Appearance: no apparent distress, alert Neurologic Exam: alert, oriented x 3, cooperative, normal mood/affect, nml cerebellar function, nml station & gait, sensation nml, No motor deficits Eye Exam: PERRL/EOMI, eyes nml inspection Ears, Nose, Throat Exam: normal ENT inspection, pharynx normal, moist mucous membranes Neck Exam: normal inspection, non-tender, supple, full range of motion Respiratory Exam: normal breath sounds, lungs clear, No respiratory distress Cardiovascular Exam: regular rate/rhythm, normal heart sounds, normal peripheral pulses Gastrointestinal/Abdomen Exam: soft, normal bowel sounds, tenderness, No distention, No mass, No guarding, No rebound Back Exam: normal inspection, normal range of motion, No CVA tenderness, No vertebral tenderness Extremity Exam: normal inspection, normal range of motion, pelvis stable Skin Exam: normal color, warm, dry, No rash Lymphatic Exam: No adenopathy Results - Labs Lab/Micro Results: Accuchecks Date 01/16/18 Time 07:30 Accucheck Value: 142 Accucheck Value: 207 Accucheck Value: 207 Lab Results-Last 24 Hours 01/15/18 01/15/18 01/15/18 Range/Units 18:45 18:45 18:45 WBC 26.7 H* (4.0-10.5) K/mm3 RBC 4.30 (4.1-5.4) M/mm3 Hgb 13.6 (12.0-16.0) gm/dl Hct 40.1 (35-47) % MCV 93.3 (78-100) fl MCH 31.6 (26-32) pg MCHC 33.9 (32-36) g/dl RDW 12.9 (11.5-14.0) % Plt Count 246 (150-450) K/mm3 MPV 10.1 H (6-9.5) fl Gran % 79.2 H (36.0-66.0) % Eos # (Auto) 0.34 (0-0.5) Absolute Lymphs (auto) 3.65 (1.0-4.6) Absolute Monos (auto) 1.53 H (0.0-1.3) Lymphocytes % 13.7 L (24.0-44.0) % Monocytes % 5.7 (0.0-12.0) % Eosinophils % 1.3 (0.00-5.0) % Basophils % 0.1 (0.0-0.4) % Absolute Granulocytes 21.17 H (1.4-6.9) Segmented Neutrophils 61 (36.0-66.0) % Band Neutrophils 15 H (0.0-2.0) % Lymphocytes (Manual) 15 L (24-44) % Monocytes (Manual) 7 (0.0-12.0) % Eosinophils (Manual) 2 (0.00-3.0) % Basophils # 0.03 (0-0.4) Platelet Estimate NORMAL (NORMAL) RBC Morphology ABNORMAL Poikilocytosis 1+ Anisocytosis 1+ Smear Path Review Pending PT 13.0 H (9.95-12.35) SECONDS INR 1.12 (0.8-3.0) D-Dimer (215-500) ng/mL Puncture Site pCO2 (35-45) mmHg pO2 (75-100) mmHg Base Excess (-2.0-2.0) O2 Saturation (94-100) g/dF ABG pH (7.35-7.45) ABG HCO3 (22-28) ABG O2 Sat (Measured) (95-100) % Miguel Test A-a Gradient a/A Ratio Hemoglobin Carboxyhemoglobin (0.0-6.9) % THgb Methemoglobin (1.4-1.5) % Temperature C POC O2 Flow Rate % Sodium 138 (137-145) mmol/L Potassium 4.2 (3.5-5.1) mmol/L Chloride 103 (98-107) mmol/L Carbon Dioxide 26 (22-30) mmol/L Anion Gap 12.7 (5-15) MEQ/L BUN 14 (7-17) mg/dL Creatinine 0.78 (0.52-1.04) mg/dL Estimated GFR > 60.0 ML/MIN Glucose 223 H (74-106) mg/dL Lactic Acid (0.4-2.0) Calcium 9.2 (8.4-10.2) mg/dL Total Bilirubin 0.50 (0.2-1.3) mg/dL AST 31 (14-36) U/L ALT 26 (0-35) U/L Alkaline Phosphatase 69 (38-126) U/L Troponin I (0.000-0.034) ng/mL Serum Total Protein 6.3 (6.3-8.2) g/dL Albumin 3.8 (3.5-5.0) g/dL Lipase 78 (23-300) U/L Urine Color (YELLOW) Urine Appearance (CLEAR) Urine pH (5-6) Ur Specific Hayden (1.005-1.025) Urine Protein (Negative) Urine Ketones (NEGATIVE) Urine Blood (0-5) Luís/ul Urine Nitrite (NEGATIVE) Urine Bilirubin (NEGATIVE) Urine Urobilinogen (0-1) mg/dL Ur Leukocyte Esterase (NEGATIVE) Urine WBC (Auto) (0-5) /HPF Urine RBC (Auto) (0-2) /HPF U Epithel Cells (Auto) (FEW) /HPF Urine Bacteria (Auto) (NEGATIVE) /HPF Unidentified Crystals (NEGATIVE) /HPF Other Casts (Auto) (NEGATIVE) /LPF Urine Mucus (Auto) (NEGATIVE) /HPF Urine Culture Reflexed (NO) Urine Glucose (NEGATIVE) mg/dL 01/15/18 01/15/18 01/15/18 Range/Units 18:45 18:45 19:05 WBC (4.0-10.5) K/mm3 RBC (4.1-5.4) M/mm3 Hgb (12.0-16.0) gm/dl Hct (35-47) % MCV (78-100) fl MCH (26-32) pg MCHC (32-36) g/dl RDW (11.5-14.0) % Plt Count (150-450) K/mm3 MPV (6-9.5) fl Gran % (36.0-66.0) % Eos # (Auto) (0-0.5) Absolute Lymphs (auto) (1.0-4.6) Absolute Monos (auto) (0.0-1.3) Lymphocytes % (24.0-44.0) % Monocytes % (0.0-12.0) % Eosinophils % (0.00-5.0) % Basophils % (0.0-0.4) % Absolute Granulocytes (1.4-6.9) Segmented Neutrophils (36.0-66.0) % Band Neutrophils (0.0-2.0) % Lymphocytes (Manual) (24-44) % Monocytes (Manual) (0.0-12.0) % Eosinophils (Manual) (0.00-3.0) % Basophils # (0-0.4) Platelet Estimate (NORMAL) RBC Morphology Poikilocytosis Anisocytosis Smear Path Review PT (9.95-12.35) SECONDS INR (0.8-3.0) D-Dimer 412 (215-500) ng/mL Puncture Site pCO2 (35-45) mmHg pO2 (75-100) mmHg Base Excess (-2.0-2.0) O2 Saturation (94-100) g/dF ABG pH (7.35-7.45) ABG HCO3 (22-28) ABG O2 Sat (Measured) (95-100) % Miguel Test A-a Gradient a/A Ratio Hemoglobin Carboxyhemoglobin (0.0-6.9) % THgb Methemoglobin (1.4-1.5) % Temperature C POC O2 Flow Rate % Sodium (137-145) mmol/L Potassium (3.5-5.1) mmol/L Chloride (98-107) mmol/L Carbon Dioxide (22-30) mmol/L Anion Gap (5-15) MEQ/L BUN (7-17) mg/dL Creatinine (0.52-1.04) mg/dL Estimated GFR ML/MIN Glucose (74-106) mg/dL Lactic Acid 1.6 (0.4-2.0) Calcium (8.4-10.2) mg/dL Total Bilirubin (0.2-1.3) mg/dL AST (14-36) U/L ALT (0-35) U/L Alkaline Phosphatase (38-126) U/L Troponin I < 0.012 (0.000-0.034) ng/mL Serum Total Protein (6.3-8.2) g/dL Albumin (3.5-5.0) g/dL Lipase (23-300) U/L Urine Color (YELLOW) Urine Appearance (CLEAR) Urine pH (5-6) Ur Specific Hayden (1.005-1.025) Urine Protein (Negative) Urine Ketones (NEGATIVE) Urine Blood (0-5) Luís/ul Urine Nitrite (NEGATIVE) Urine Bilirubin (NEGATIVE) Urine Urobilinogen (0-1) mg/dL Ur Leukocyte Esterase (NEGATIVE) Urine WBC (Auto) (0-5) /HPF Urine RBC (Auto) (0-2) /HPF U Epithel Cells (Auto) (FEW) /HPF Urine Bacteria (Auto) (NEGATIVE) /HPF Unidentified Crystals (NEGATIVE) /HPF Other Casts (Auto) (NEGATIVE) /LPF Urine Mucus (Auto) (NEGATIVE) /HPF Urine Culture Reflexed (NO) Urine Glucose (NEGATIVE) mg/dL 01/15/18 01/15/18 01/15/18 Range/Units 19:05 19:35 22:00 WBC (4.0-10.5) K/mm3 RBC (4.1-5.4) M/mm3 Hgb (12.0-16.0) gm/dl Hct (35-47) % MCV (78-100) fl MCH (26-32) pg MCHC (32-36) g/dl RDW (11.5-14.0) % Plt Count (150-450) K/mm3 MPV (6-9.5) fl Gran % (36.0-66.0) % Eos # (Auto) (0-0.5) Absolute Lymphs (auto) (1.0-4.6) Absolute Monos (auto) (0.0-1.3) Lymphocytes % (24.0-44.0) % Monocytes % (0.0-12.0) % Eosinophils % (0.00-5.0) % Basophils % (0.0-0.4) % Absolute Granulocytes (1.4-6.9) Segmented Neutrophils (36.0-66.0) % Band Neutrophils (0.0-2.0) % Lymphocytes (Manual) (24-44) % Monocytes (Manual) (0.0-12.0) % Eosinophils (Manual) (0.00-3.0) % Basophils # (0-0.4) Platelet Estimate (NORMAL) RBC Morphology Poikilocytosis Anisocytosis Smear Path Review PT (9.95-12.35) SECONDS INR (0.8-3.0) D-Dimer (215-500) ng/mL Puncture Site LEFT RADIAL pCO2 35 (35-45) mmHg pO2 63 L (75-100) mmHg Base Excess 2.8 H (-2.0-2.0) O2 Saturation 93.5 L (94-100) g/dF ABG pH 7.48 H (7.35-7.45) ABG HCO3 26.1 (22-28) ABG O2 Sat (Measured) 95.6 (95-100) % Miguel Test YES A-a Gradient 43 a/A Ratio 0.59 Hemoglobin 14.2 Carboxyhemoglobin 1.6 (0.0-6.9) % THgb Methemoglobin 0.7 L (1.4-1.5) % Temperature 37.0 C POC O2 Flow Rate 21 % Sodium (137-145) mmol/L Potassium 3.9 (3.5-5.1) mmol/L Chloride (98-107) mmol/L Carbon Dioxide (22-30) mmol/L Anion Gap (5-15) MEQ/L BUN (7-17) mg/dL Creatinine (0.52-1.04) mg/dL Estimated GFR ML/MIN Glucose (74-106) mg/dL Lactic Acid (0.4-2.0) Calcium (8.4-10.2) mg/dL Total Bilirubin (0.2-1.3) mg/dL AST (14-36) U/L ALT (0-35) U/L Alkaline Phosphatase (38-126) U/L Troponin I < 0.012 (0.000-0.034) ng/mL Serum Total Protein (6.3-8.2) g/dL Albumin (3.5-5.0) g/dL Lipase (23-300) U/L Urine Color YELLOW (YELLOW) Urine Appearance CLOUDY (CLEAR) Urine pH 6.0 (5-6) Ur Specific Hayden 1.009 (1.005-1.025) Urine Protein NEGATIVE (Negative) Urine Ketones NEGATIVE (NEGATIVE) Urine Blood MODERATE (0-5) Luís/ul Urine Nitrite POSITIVE (NEGATIVE) Urine Bilirubin NEGATIVE (NEGATIVE) Urine Urobilinogen NEGATIVE (0-1) mg/dL Ur Leukocyte Esterase LARGE (NEGATIVE) Urine WBC (Auto) >100 (0-5) /HPF Urine RBC (Auto) 26-50 (0-2) /HPF U Epithel Cells (Auto) NONE (FEW) /HPF Urine Bacteria (Auto) MODERATE (NEGATIVE) /HPF Unidentified Crystals 25-50 (NEGATIVE) /HPF Other Casts (Auto) 5-10 (NEGATIVE) /LPF Urine Mucus (Auto) MODERATE (NEGATIVE) /HPF Urine Culture Reflexed YES (NO) Urine Glucose NEGATIVE (NEGATIVE) mg/dL 01/16/18 01/16/18 01/16/18 Range/Units 01:00 04:00 04:00 WBC 19.7 H (4.0-10.5) K/mm3 RBC 3.65 L (4.1-5.4) M/mm3 Hgb 11.5 L (12.0-16.0) gm/dl Hct 34.8 L (35-47) % MCV 95.3 (78-100) fl MCH 31.5 (26-32) pg MCHC 33.0 D (32-36) g/dl RDW 12.9 (11.5-14.0) % Plt Count 208 (150-450) K/mm3 MPV 9.7 H (6-9.5) fl Gran % 73.4 H (36.0-66.0) % Eos # (Auto) 0.23 (0-0.5) Absolute Lymphs (auto) 3.88 (1.0-4.6) Absolute Monos (auto) 1.10 (0.0-1.3) Lymphocytes % 19.7 L (24.0-44.0) % Monocytes % 5.6 (0.0-12.0) % Eosinophils % 1.2 (0.00-5.0) % Basophils % 0.1 (0.0-0.4) % Absolute Granulocytes 14.43 H (1.4-6.9) Segmented Neutrophils (36.0-66.0) % Band Neutrophils (0.0-2.0) % Lymphocytes (Manual) (24-44) % Monocytes (Manual) (0.0-12.0) % Eosinophils (Manual) (0.00-3.0) % Basophils # 0.02 (0-0.4) Platelet Estimate (NORMAL) RBC Morphology Poikilocytosis Anisocytosis Smear Path Review PT (9.95-12.35) SECONDS INR (0.8-3.0) D-Dimer (215-500) ng/mL Puncture Site pCO2 (35-45) mmHg pO2 (75-100) mmHg Base Excess (-2.0-2.0) O2 Saturation (94-100) g/dF ABG pH (7.35-7.45) ABG HCO3 (22-28) ABG O2 Sat (Measured) (95-100) % Miguel Test A-a Gradient a/A Ratio Hemoglobin Carboxyhemoglobin (0.0-6.9) % THgb Methemoglobin (1.4-1.5) % Temperature C POC O2 Flow Rate % Sodium (137-145) mmol/L Potassium (3.5-5.1) mmol/L Chloride (98-107) mmol/L Carbon Dioxide (22-30) mmol/L Anion Gap (5-15) MEQ/L BUN (7-17) mg/dL Creatinine (0.52-1.04) mg/dL Estimated GFR ML/MIN Glucose (74-106) mg/dL Lactic Acid (0.4-2.0) Calcium (8.4-10.2) mg/dL Total Bilirubin (0.2-1.3) mg/dL AST (14-36) U/L ALT (0-35) U/L Alkaline Phosphatase (38-126) U/L Troponin I < 0.012 < 0.012 (0.000-0.034) ng/mL Serum Total Protein (6.3-8.2) g/dL Albumin (3.5-5.0) g/dL Lipase (23-300) U/L Urine Color (YELLOW) Urine Appearance (CLEAR) Urine pH (5-6) Ur Specific Hayden (1.005-1.025) Urine Protein (Negative) Urine Ketones (NEGATIVE) Urine Blood (0-5) Luís/ul Urine Nitrite (NEGATIVE) Urine Bilirubin (NEGATIVE) Urine Urobilinogen (0-1) mg/dL Ur Leukocyte Esterase (NEGATIVE) Urine WBC (Auto) (0-5) /HPF Urine RBC (Auto) (0-2) /HPF U Epithel Cells (Auto) (FEW) /HPF Urine Bacteria (Auto) (NEGATIVE) /HPF Unidentified Crystals (NEGATIVE) /HPF Other Casts (Auto) (NEGATIVE) /LPF Urine Mucus (Auto) (NEGATIVE) /HPF Urine Culture Reflexed (NO) Urine Glucose (NEGATIVE) mg/dL 01/16/18 01/16/18 Range/Units 04:00 07:10 WBC (4.0-10.5) K/mm3 RBC (4.1-5.4) M/mm3 Hgb (12.0-16.0) gm/dl Hct (35-47) % MCV (78-100) fl MCH (26-32) pg MCHC (32-36) g/dl RDW (11.5-14.0) % Plt Count (150-450) K/mm3 MPV (6-9.5) fl Gran % (36.0-66.0) % Eos # (Auto) (0-0.5) Absolute Lymphs (auto) (1.0-4.6) Absolute Monos (auto) (0.0-1.3) Lymphocytes % (24.0-44.0) % Monocytes % (0.0-12.0) % Eosinophils % (0.00-5.0) % Basophils % (0.0-0.4) % Absolute Granulocytes (1.4-6.9) Segmented Neutrophils (36.0-66.0) % Band Neutrophils (0.0-2.0) % Lymphocytes (Manual) (24-44) % Monocytes (Manual) (0.0-12.0) % Eosinophils (Manual) (0.00-3.0) % Basophils # (0-0.4) Platelet Estimate (NORMAL) RBC Morphology Poikilocytosis Anisocytosis Smear Path Review PT (9.95-12.35) SECONDS INR (0.8-3.0) D-Dimer (215-500) ng/mL Puncture Site pCO2 (35-45) mmHg pO2 (75-100) mmHg Base Excess (-2.0-2.0) O2 Saturation (94-100) g/dF ABG pH (7.35-7.45) ABG HCO3 (22-28) ABG O2 Sat (Measured) (95-100) % Miguel Test A-a Gradient a/A Ratio Hemoglobin Carboxyhemoglobin (0.0-6.9) % THgb Methemoglobin (1.4-1.5) % Temperature C POC O2 Flow Rate % Sodium 138 (137-145) mmol/L Potassium 4.1 (3.5-5.1) mmol/L Chloride 106 (98-107) mmol/L Carbon Dioxide 27 (22-30) mmol/L Anion Gap 9.5 (5-15) MEQ/L BUN 14 (7-17) mg/dL Creatinine 0.79 (0.52-1.04) mg/dL Estimated GFR > 60.0 ML/MIN Glucose 162 H (74-106) mg/dL Lactic Acid (0.4-2.0) Calcium 8.2 L (8.4-10.2) mg/dL Total Bilirubin (0.2-1.3) mg/dL AST (14-36) U/L ALT (0-35) U/L Alkaline Phosphatase (38-126) U/L Troponin I < 0.012 (0.000-0.034) ng/mL Serum Total Protein (6.3-8.2) g/dL Albumin (3.5-5.0) g/dL Lipase (23-300) U/L Urine Color (YELLOW) Urine Appearance (CLEAR) Urine pH (5-6) Ur Specific Hayden (1.005-1.025) Urine Protein (Negative) Urine Ketones (NEGATIVE) Urine Blood (0-5) Luís/ul Urine Nitrite (NEGATIVE) Urine Bilirubin (NEGATIVE) Urine Urobilinogen (0-1) mg/dL Ur Leukocyte Esterase (NEGATIVE) Urine WBC (Auto) (0-5) /HPF Urine RBC (Auto) (0-2) /HPF U Epithel Cells (Auto) (FEW) /HPF Urine Bacteria (Auto) (NEGATIVE) /HPF Unidentified Crystals (NEGATIVE) /HPF Other Casts (Auto) (NEGATIVE) /LPF Urine Mucus (Auto) (NEGATIVE) /HPF Urine Culture Reflexed (NO) Urine Glucose (NEGATIVE) mg/dL Microbiology 01/15/18 19:35 Urine Culture - Preliminary Urine, Void GRAM NEGATIVE ID AND SENSITIVITY PENDING Accuchecks Date 01/16/18 Time 07:30 Accucheck Value: 142 Accucheck Value: 207 Accucheck Value: 207 - Radiology Impressions Radiology Exams & Impressions: Radiology Procedures Category Date Time Status CHEST 2 VIEWS (PA AND LAT) Stat Exams 01/15/18 18:48 Taken KUB Stat Exams 01/15/18 18:48 Taken - Other Procedures and Tests Respiratory Therapy 01/15/18 22:22 Oxygen NASAL CANNULA 2 lpm Assessment/Plan (1) Sepsis Current Visit: Yes Status: Acute Assessment & Plan: due to uti improving. had a dose of levaquin and ceftiraxone in the ED. will continue with ceftriaxone and gentle fluids advance diet. await urine culture if continues to improve could go home tomorrow on oral monitor blood sugar with low yesterday am. continue home meds for now with sliding scale coverage she is only on 8mg of prednisone and this has been tapered from her original dose of 30 mg daily over the last several months for her polymyalgia rheumatica. currently decreasing by 1mg/month as tolerated. ppx lovenox 40 mg daily (2) UTI (urinary tract infection) Current Visit: Yes Status: Acute Onset Date: ~01/15/18 Code(s): N39.0 - URINARY TRACT INFECTION, SITE NOT SPECIFIED (3) Polymyalgia rheumatica Current Visit: Yes Status: Chronic Code(s): M35.3 - POLYMYALGIA RHEUMATICA (4) Type 2 diabetes mellitus Current Visit: Yes Status: Acute (5) HTN (hypertension) Current Visit: Yes Status: Chronic Code(s): I10 - ESSENTIAL (PRIMARY) HYPERTENSION (6) Hyperlipemia Current Visit: Yes Status: Chronic Code(s): E78.5 - HYPERLIPIDEMIA, UNSPECIFIED (7) GERD (gastroesophageal reflux disease) Current Visit: Yes Status: Chronic Code(s): K21.9 - GASTRO-ESOPHAGEAL REFLUX DISEASE WITHOUT ESOPHAGITIS
--- NOTE | 2018-01-16 09:13 | XRAY ---
Exam: Two-view chest from 01/15/2018. Comparison: AP upright portable chest film from 11/03/2016 and two-view chest from 12/11/2014. Indication: Shortness of breath and fatigue in 77-year-old female. Findings: Upright PA and lateral chest films were obtained. The heart size and contour are normal. There is a 4.3 cm in diameter air filled density behind the heart at the base of the chest which is believed to represent a mild hiatal hernia. Atherosclerotic vascular calcification is seen within the aortic arch. The barb and mediastinal structures appear unremarkable. The lungs are well inflated. A tiny calcified granuloma is seen within the peripheral right midlung field on the PA film representing no change from 12/11/2014. No air space infiltrates, vascular congestion, pneumothorax, or pleural fluid is seen. Moderate degenerative thoracic spondylosis is seen within the middle and lower thoracic spine. Vascular calcification is seen within the abdominal aorta on the lateral film. EKG leads are seen in place. Impression: 1. There is an air density projected behind the heart in the midline at the lung base consistent with a mild hiatal hernia. This is unchanged. 2. No acute cardiopulmonary disease is seen.
--- NOTE | 2018-01-16 09:21 | XRAY ---
Exam: Supine film the abdomen from 01/15/2018. Comparison: None. Indication: 77-year-old female with abdominal pain with nausea, vomiting, and diarrhea today, history of tubal ligation. Findings: A supine film the abdomen was obtained. The bowel gas pattern appears nonspecific. Stool density is seen within the splenic flexure in the left upper quadrant as well as the sigmoid colon region. No findings to suggest mechanical bowel obstruction are seen. There is a probable pessary overlying the lower pelvic midline. A small fastener device is seen on each side of midline at the level of the symphysis pubis. No hepatosplenomegaly is seen. There is a tiny 1 mm punctate radiopaque density within the medial aspect of the left upper quadrant of unknown, but doubtful significance. It is possible that this is artifactual. It overlies the medial margin of the left kidney just above the midpoint. I doubt this represents a renal stone. It could represent a bowel lumen content or other artifact in this projection. Mild degenerative changes are seen within the lower lumbar spine. Some vascular calcification is seen within the proximal iliac arteries and common femoral arteries. Prior air-filled density believed to represent a mild hiatal hernia is again seen at the superior margin of the abdomen radiograph. Impression: 1. Nonspecific bowel gas pattern with mild fecal retention within the splenic flexure and sigmoid colon. No findings to suggest bowel obstruction or significant ileus are seen. 2. Other incidental findings, as discussed above.
[2018-01-16] MEDS: NEURONTIN 300 MG PO SCH ×3 (09:55→21:58)
[2018-01-16] MEDS ORDERED: NON-FORMULARY ITEM (Esomeprazole Magnesium [Nexium] 40 MG) PO SCH (10:00)
[2018-01-16] MEDS ORDERED: ENOXAPARIN SODIUM SQ SCH (10:00)
[2018-01-16] MEDS ORDERED: Protonix 40MG Tablet PO SCH (10:00)
[2018-01-16] MEDS ORDERED: Cozaar 50 MG PO SCH (10:00)
[2018-01-16] MEDS ORDERED: MULTIVITAMIN PO SCH (10:00)
[2018-01-16] MEDS ORDERED: PREDNISONE PO SCH (10:00)
[2018-01-16] MEDS ORDERED: DELTASONE 5 MG PO SCH (10:00)
[2018-01-16] MEDS ORDERED: THERAGRAN MULTIVITAMIN PO SCH (10:00)
[2018-01-16] MEDS ORDERED: Vitamin B-12 500 MCG PO SCH (10:00)
[2018-01-16] MEDS ORDERED: NON-FORMULARY ITEM (Cyanocobalamin (Vitamin B-12) [B-12] 1,000 MCG) PO SCH (10:00)
[2018-01-16] MEDS ORDERED: ECOTRIN 81 MG PO SCH (10:00)
[2018-01-16] MEDS: NovoLOG Insulin SQ SCH ×2 (11:31→17:37)
[2018-01-16] MEDS ORDERED: NON-FORMULARY ITEM (Insulin Aspart [Novolog Flexpen] 10 UNIT) SQ SCH (12:00)
[2018-01-16] MEDS ORDERED: DESYREL 50 MG PO SCH (22:00)
[2018-01-16] MEDS ORDERED: ROCEPHIN 1 Gm-D5w 50 ml Bag** 1 G/50 ML IVPB IV SCH (22:00)
[2018-01-16] MEDS ORDERED: Lantus Insulin SQ SCH (22:00)
[2018-01-16] MEDS ORDERED: INSULIN DETEMIR 45 UNIT SQ SCH (22:00)
[2018-01-16] MEDS ORDERED: NON-FORMULARY ITEM (Rosuvastatin Calcium [Crestor] 10 MG) PO SCH (22:00)
[2018-01-16] MEDS ORDERED: ZOCOR 20MG PO SCH (22:00)
[2018-01-17 05:41] LABS: BASOPHIL % 0.2 % (0.0-0.4); Basophil (Absolute #) 0.02 (0-0.4); Eosinophil % 2.9 % (0.00-5.0); Eosinophil (Absolute #) 0.34 (0-0.5); Granulocytes % 56.1 % (36.0-66.0); Hemoglobin 10.8 gm/dl (12.0-16.0); Lymphocyte (Absolute #) 4.09 (1.0-4.6); Lymphocytes % 34.7 % (24.0-44.0); Mean Cell Volume 96.5 fl (78-100); Mean Corpuscular Hgb Concent. 32.7 g/dl (32-36); Mean Platelet Volume 9.8 fl (6-9.5); Monocyte (Absolute #) 0.72 (0.0-1.3); Monocytes % 6.1 % (0.0-12.0); Platelet Count 198 K/mm3 (150-450); Red Blood Count 3.42 M/mm3 (4.1-5.4); Red Cell Distribution Width 12.8 % (11.5-14.0); White Blood Count 11.8 K/mm3 (4.0-10.5)
[2018-01-17 05:43] LABS: Mean Corpuscular Hemoglobin 31.5 pg (26-32)
[2018-01-17 06:09] LABS: ANION GAP 7.8 MEQ/L (5-15); BLOOD UREA NITROGEN 10 mg/dL (7-17); CHLORIDE 110 mmol/L (98-107); Calcium 8.7 mg/dL (8.4-10.2); Carbon Dioxide 26 mmol/L (22-30); Creatinine 1 0.74 mg/dL (0.52-1.04); Glucose 86 mg/dL (74-106); Potassium 3.7 mmol/L (3.5-5.1); SODIUM 140 mmol/L (137-145)
[2018-01-17] MEDS: NovoLOG Insulin SQ SCH (07:56)
--- NOTE | 2018-01-17 08:07 | PCM.DS ---
Discharge Summary Date of Admission: 01/15/18 21:14 Date of Discharge: 01/17/2018 Admitting Physician: UNA TOVAR Primary Care Provider: UNA TOVAR Allergies Allergies Sulfa (Sulfonamide Antibiotics) Allergy (Severe, Verified 01/15/18 18:26) [facility] Summary - Hospital Course Hospital Course: She presented with sudden onset low blood sugar, fever, vomiting, diarrhea and was found to be septic with Klebsiella UTI. She was treated with fluids and given levaquin and ceftriaxone in the ED and ceftriaxone was contniued on the floor. She recovered well her wbc trended down. Her sugars did well on her home insulin. She was eating well and symptoms have resolved. Culture shows pansensitive Klebsiella and will treat with levaquin daily for 7 more days at discharge in good condition. - Vitals & Intake/Output Vital Signs: Vital Signs Temperature 97.4 F 01/17/18 04:00 Pulse Rate 86 01/17/18 04:00 Respiratory Rate 16 01/17/18 04:00 Blood Pressure 111/56 01/17/18 04:00 O2 Sat by Pulse Oximetry 96 01/17/18 04:00 Oxygen-Last Documented O2 Percentage 2 Liters = 28% Intake & Output: Intake & Output 01/14/18 01/15/18 01/16/18 01/17/18 11:59 11:59 11:59 11:59 Intake Total 576 760 Output Total 300 1450 Balance 276 -690 Weight 61.4 kg - Lab Result Diagrams: 01/17/18 05:13 01/17/18 05:13 Lab Results-Last 24 Hrs: Accuchecks Date 01/17/18 Date 01/16/18 Date 01/16/18 Date 01/16/18 Time 22:04 Time 16:30 Time 11:30 Accucheck Value: 86 Accucheck Value: 122 Accucheck Value: 203 Accucheck Value: 211 Lab Results-Last 24 Hours 01/16/18 01/17/18 01/17/18 Range/Units 07:10 05:13 05:13 WBC 11.8 H (4.0-10.5) K/mm3 RBC 3.42 L (4.1-5.4) M/mm3 Hgb 10.8 L (12.0-16.0) gm/dl Hct 33.0 L (35-47) % MCV 96.5 (78-100) fl MCH 31.5 (26-32) pg MCHC 32.7 (32-36) g/dl RDW 12.8 (11.5-14.0) % Plt Count 198 (150-450) K/mm3 MPV 9.8 H (6-9.5) fl Gran % 56.1 (36.0-66.0) % Eos # (Auto) 0.34 (0-0.5) Absolute Lymphs (auto) 4.09 (1.0-4.6) Absolute Monos (auto) 0.72 (0.0-1.3) Lymphocytes % 34.7 (24.0-44.0) % Monocytes % 6.1 (0.0-12.0) % Eosinophils % 2.9 (0.00-5.0) % Basophils % 0.2 (0.0-0.4) % Absolute Granulocytes 6.60 (1.4-6.9) Basophils # 0.02 (0-0.4) Sodium 140 (137-145) mmol/L Potassium 3.7 (3.5-5.1) mmol/L Chloride 110 H (98-107) mmol/L Carbon Dioxide 26 (22-30) mmol/L Anion Gap 7.8 (5-15) MEQ/L BUN 10 (7-17) mg/dL Creatinine 0.74 (0.52-1.04) mg/dL Estimated GFR > 60.0 ML/MIN Glucose 86 (74-106) mg/dL Calcium 8.7 (8.4-10.2) mg/dL Troponin I < 0.012 (0.000-0.034) ng/mL Micro Results-Entire Visit: Microbiology 01/15/18 19:35 Urine Culture - Final Urine, Void Klebsiella Pneumoniae Accuchecks Date 01/17/18 Date 01/16/18 Date 01/16/18 Date 01/16/18 Time 22:04 Time 16:30 Time 11:30 Accucheck Value: 86 Accucheck Value: 122 Accucheck Value: 203 Accucheck Value: 211 - Radiology Exams Ordered Rad Exams-Entire Visit: Radiology Procedures Category Date Time Status CHEST 2 VIEWS (PA AND LAT) Stat Exams 01/15/18 18:48 Completed KUB Stat Exams 01/15/18 18:48 Completed - Procedures and Test Procedures and Tests throughout Hospitalization: Therapy Orders & Screens 01/15/18 22:22 Oxygen NASAL CANNULA 2 lpm Comment: Diagnosis: uti Discharge Exam General Appearance: no apparent distress, alert Neurologic Exam: alert, oriented x 3, cooperative, normal mood/affect, nml cerebellar function, sensation nml, No motor deficits Skin Exam: normal color, warm, dry Eye Exam: PERRL, EOMI, eyes nml inspection Ears, Nose, Throat Exam: normal ENT inspection, pharynx normal, moist mucous membranes Neck Exam: normal inspection, non-tender, supple, full range of motion Respiratory Exam: normal breath sounds, lungs clear, No respiratory distress Cardiovascular Exam: regular rate/rhythm, normal heart sounds Gastrointestinal/Abdomen Exam: soft, No tenderness, No mass Extremity Exam: normal inspection, normal range of motion Back Exam: normal inspection, normal range of motion, No CVA tenderness, No vertebral tenderness Pelvic Exam: deferred Rectal Exam: deferred Final Diagnosis/Problem List - Final Discharge Diagnosis/Problem (1) Sepsis Current Visit: Yes Status: Acute (2) UTI (urinary tract infection) Current Visit: Yes Status: Acute Onset Date: ~01/15/18 (3) Polymyalgia rheumatica Current Visit: Yes Status: Chronic (4) Type 2 diabetes mellitus Current Visit: Yes Status: Acute (5) HTN (hypertension) Current Visit: Yes Status: Chronic (6) Hyperlipemia Current Visit: Yes Status: Chronic (7) GERD (gastroesophageal reflux disease) Current Visit: Yes Status: Chronic - Discharge Discharge Date: 01/17/18 Disposition: Home, Self-Care Condition: Stable Prescriptions: New Levofloxacin [Levaquin] 500 mg PO DAILY #7 tablet Continue Cyanocobalamin (Vitamin B-12) [B-12] 1,000 mcg PO DAILY Multivitamin [Multi-Vitamin Daily] 1 ea PO DAILY Raloxifene HCl 60 mg [Evista 60 MG] 60 mg PO DAILY Esomeprazole Magnesium [Nexium] 40 mg PO DAILY Losartan Potassium 50 mg [Cozaar 50 MG] 50 mg PO BID Rosuvastatin Calcium [Crestor] 10 mg PO HS Insulin Detemir [Levemir Flextouch] 45 unit SQ HS Insulin Aspart [Novolog Flexpen] 10 unit SQ TIDWMEALS Aspirin EC 81 mg [Ecotrin 81 mg] 81 mg PO DAILY Gabapentin 300 mg PO TID predniSONE [Prednisone] 3 mg PO DAILY Prednisone 5 mg [Deltasone 5 mg] 5 mg PO DAILY Trazodone HCl 50 mg [Desyrel 50 mg] 50 mg PO QHS Follow up with: UNA TOVAR [Primary Care Provider] - 1 Week
[2018-01-17 08:11] VITALS: BP 155/66; PULSE 100
[2018-01-17 08:50] VITALS: O2SAT 95
== END 2018-01-17 08:55 | disposition home or self-care (01) ==
LOC: ED 18:11 → MED SURG 21:14
PROVIDERS: ADMIT Family Medicine; ATTEND Family Medicine
DX: A41.9 Sepsis, unspecified organism (principal); N39.0 Urinary tract infection, site not specified; M35.3 Polymyalgia rheumatica; E11.9 Type 2 diabetes mellitus without complications; I10 Essential (primary) hypertension; E78.5 Hyperlipidemia, unspecified; K21.9 Gastro-esophageal reflux disease without esophagitis; Z79.4 Long term (current) use of insulin; Z79.899 Other long term (current) drug therapy; E78.00 Pure hypercholesterolemia, unspecified
CPT/HCPCS: 36000; 36415; 36600; 71046; 74018; 80048; 80053; 81001; 82375; 82803; 82962; 83605; 83690; 84484; 85025; 85379; 85610; 87077; 87086; 87186; 93005; 94760; 96360; 96365; 96374; 96375; 99285; G0378; J0696; J1650; J2405; A9270-GY

== ENCOUNTER → 2018-12-18 | Outpatient (CLI) | payer MEDICARE | LOC: CLIN-SCCH 08:00 | PROVIDERS: ATTEND Family Medicine | DX: I25.10 Atherosclerotic heart disease of native coronary artery without angina pectoris (principal); R79.82 Elevated C-reactive protein (CRP); E05.90 Thyrotoxicosis, unspecified without thyrotoxic crisis or storm; E11.9 Type 2 diabetes mellitus without complications | CPT/HCPCS: 99214 ==

== ENCOUNTER 2022-10-30 21:27 | Emergency (ER) | payer MEDICARE ==
[2022-10-30 22:05] VITALS: TEMP 97.1
[2022-10-30 22:13] LABS: Absolute Neutrophil Ct (ANC) 5.41 x10^3/uL (1.4-6.9); BASOPHIL % 0.6 % (0.0-0.4); Basophil (Absolute #) 0.07 x10^3/uL (0-0.4); Eosinophil % 4.9 % (0.00-5.0); Eosinophil (Absolute #) 0.53 x10^3/uL (0-0.5); Hematocrit 33.9 % (35-47); Hemoglobin 11.5 g/dL (12.0-16.0); IMMATURE GRAN # 0.03 x10^3u/L (0.00-0.03); IMMATURE GRAN % 0.3 % (0.00-0.4); Lymphocytes % 36.1 % (24.0-44.0); Mean Cell Volume 91.9 fL (78-100); Mean Corpuscular Hemoglobin 31.2 pg (26-32); Mean Corpuscular Hgb Concent. 33.9 g/dL (32-36); Monocyte (Absolute #) 0.85 x10^3/uL (0.0-1.3); Monocytes % 7.9 % (0.0-12.0); Neutrophil % 50.2 % (36.0-66.0); Platelet Count 324 x10^3/uL (150-450); Red Blood Count 3.69 x10^6/uL (4.1-5.4); Red Cell Distribution Width 11.5 % (11.5-14.0); White Blood Count 10.8 x10^3/uL (4.0-10.5)
[2022-10-30 22:23] LABS: Appearance Clear (Clear); Bacteria None Seen /HPF (None Seen); Bilirubin Negative (Negative); Blood Trace (Negative); Epithelial Cells None Seen /HPF (None Seen); Glucose, Urine Negative (Negative); Hyaline Casts NONE SEEN /LPF (0-2); Ketones Negative (Negative); Leukocyte Esterase Large (Negative); Nitrite Negative (Negative); Ph 6.5 (4.6-8.0); Protein,Urine Dip Negative (Negative); RBC 0-2 /HPF (0-5); Urobilinogen 0.2 mg/dL (0.2); WBC 21-50 /HPF (0-5)
[2022-10-30 22:24] LABS: ADD URINE CULTURE? YES (NO)
[2022-10-30 22:26] VITALS: RESP 20
[2022-10-30 22:27] LABS: ALBUMIN 4.2 g/dL (3.5-5.0); ALKALINE PHOSPHATASE 110 U/L (38-126); ANION GAP 12.6 MEQ/L (5-15); BLOOD UREA NITROGEN 13 mg/dL (7-17); CHLORIDE 96 mmol/L (98-107); Calcium 8.7 mg/dL (8.4-10.2); Carbon Dioxide 28 mmol/L (22-30); Creatinine 1 0.69 mg/dL (0.52-1.04); EST GLOMERULAR FILTRATION RATE > 60.0 ML/MIN; Glucose 228 mg/dL (74-106); Potassium 3.9 mmol/L (3.5-5.1); SGOT/AST 33 U/L (14-36); SGPT/ALT 22 U/L (0-35); SODIUM 133 mmol/L (137-145); Total Protein 7.3 g/dL (6.3-8.2)
[2022-10-30 22:29] VITALS: BP 159/75; PULSE 81; O2SAT 95
[2022-10-30] MEDS ORDERED: ROCEPHIN 1 Gm-D5w 50 ml Bag** 1 G/50 ML IVPB IV STA (22:42)
[2022-10-30] MEDS ORDERED: ROCEPHIN 1 Gm-D5w 50 ml Bag** 1 G/50 ML IVPB IV ONE (22:45)
--- NOTE | 2022-10-30 22:48 | ERPHSYRPT ---
- History of Present Illness Time Seen by Provider: 10/30/22 22:45 Source: patient Exam Limitations: no limitations Patient Subjective Stated Complaint: pt states that she finished antibotic today for a UTI and I feel that its not better Triage Nursing Assessment: pt came into the er via wheelchair; pt transferred self to cot; c/o UTI; pt denies burning, pain with urination; pt states that she does not feel well; active bowel sounds in all quads; c/o nausea; denies vomiting, diarrhea; skin PDW; no respiratory distress present; hypertensive Physician History: Patient is 82-year-old female with significant history of hypertension and recurrent urinary tract infection with recurrent history of urosepsis recently was treated for urinary tract infection and finished her antibiotic ciprofloxacin just 2 days ago but she still was not feeling well she is also feeling very weak and having a low-grade fever with chills so she came to the emergency room for further evaluation. Timing/Duration: today Associated Symptoms: chills, fever, malaise, weakness Allergies/Adverse Reactions: Sulfa (Sulfonamide Antibiotics) Allergy (Severe, Verified 10/30/22 21:49) Rash Home Medications: Aspirin EC 81 mg [Ecotrin 81 mg] 81 mg PO DAILY 11/02/16 [History] Cyanocobalamin (Vitamin B-12) [B-12] 1,000 mcg PO DAILY 11/02/16 [History] Esomeprazole Magnesium [Nexium] 40 mg PO DAILY 11/02/16 [History] Insulin Aspart [Novolog Flexpen] 3 unit SQ TIDWMEALS 11/02/16 [History] Multivitamin [Multi-Vitamin Daily] 1 ea PO DAILY 11/02/16 [History] Raloxifene HCl 60 mg [Evista 60 MG] 60 mg PO DAILY 11/02/16 [History] Rosuvastatin Calcium [Crestor] 5 mg PO HS 11/02/16 [History] Trazodone HCl 50 mg [Desyrel 50 mg] 50 mg PO QHS 01/15/18 [History] Cholecalciferol (Vitamin D3) [Vitamin D3] 2,000 units PO DAILY 11/22/20 [History] Metoprolol Tartrate 50 mg [Lopressor 50 MG] 50 mg PO DAILY 11/22/20 [History] Insulin Degludec [Tresiba Flextouch U-200] 12 unit SQ DAILY 10/30/22 [History] Losartan/Hydrochlorothiazide [Losartan-Hctz 100-12.5 mg Tab] 1 tab PO DAILY 10/30/22 [History] Hx Tetanus, Diphtheria Vaccination/Date Given: No (unsure) Hx Influenza Vaccination/Date Given: No Hx Pneumococcal Vaccination/Date Given: Yes Immunizations Up to Date: No Travel Risk - International Travel Have you traveled outside of the country in past 3 weeks: No - Coronavirus Screening Are you exhibiting any of the following symptoms?: No Close contact with a COVID-19 positive Pt in past 14-21 Days: No - Vaccine Status Have you recieved a Covid-19 vaccination: Yes [employer]: Moderna - Vaccination Dates Date of 2cond Vaccination (if applicable): 2020 - Review of Systems Constitutional: Fever, Chills, Fatigue, Weakness Eyes: No Symptoms Ears, Nose, & Throat: No Symptoms Respiratory: No Cough, No Dyspnea Cardiac: No Chest Pain, No Edema, No Syncope Abdominal/Gastrointestinal: No Abdominal Pain, No Nausea, No Vomiting, No Diarrhea Genitourinary Symptoms: No Dysuria Musculoskeletal: No Back Pain, No Neck Pain Skin: No Rash Neurological: No Dizziness, No Focal Weakness, No Sensory Changes Psychological: No Symptoms Endocrine: No Symptoms All Other Systems: Reviewed and Negative - Past Medical History Pertinent Past Medical History: Yes Neurological History: Other ENT History: Cataracts Cardiac History: Other Respiratory History: No Pertinent History Endocrine Medical History: Diabetes Type II, Other Musculoskeletal History: No Pertinent History GI Medical History: GERD, Hernia History: Other Psycho-Social History: No Pertinent History Female Reproductive Disorders: No Pertinent History 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 - Past Surgical History Past Surgical History: Yes Neuro Surgical History: No Pertinent History Cardiac: No Pertinent History Respiratory: No Pertinent History Gastrointestinal: No Pertinent History Genitourinary: No Pertinent History Musculoskeletal: Other Female Surgical History: Tubal Ligation Other Surgical History: back,hand, egd with dilitation, bilateral feet - Social History Smoking Status: Former smoker Exposure to second hand smoke: No Drug Use: none Patient Lives Alone: Yes - Nursing Vital Signs Nursing Vital Signs: Initial Vital Signs Temperature 97.1 F 10/30/22 21:50 Pulse Rate 94 H 09/09/23 21:50 Respiratory Rate 14 10/30/22 21:50 Blood Pressure 202/107 10/30/22 21:50 Pain Scale Pain Intensity 3 - Physical Exam General Appearance: no apparent distress, alert Eye Exam: PERRL/EOMI, eyes nml inspection Ears, Nose, Throat Exam: normal ENT inspection, TMs normal, pharynx normal, moist mucous membranes Neck Exam: normal inspection, non-tender, supple, full range of motion Respiratory Exam: normal breath sounds, lungs clear, No respiratory distress Cardiovascular Exam: regular rate/rhythm, normal heart sounds, normal peripheral pulses Gastrointestinal/Abdomen Exam: soft, normal bowel sounds, No tenderness, No mass Back Exam: normal inspection, normal range of motion, No CVA tenderness, No vertebral tenderness Extremity Exam: normal inspection, normal range of motion, pelvis stable Neurologic Exam: alert, oriented x 3, cooperative, normal mood/affect, nml cerebellar function, nml station & gait, sensation nml, No motor deficits Skin Exam: normal color, warm, dry, No rash Lymphatic Exam: No adenopathy SpO2: 95 - Course Nursing assessment & vital signs reviewed: Yes Ordered Tests: Active Orders 24 hr Category Date Time Status Filter Pulp Washer STAT Care 10/30/22 22:02 Active EKG-ER Only STAT Care 10/30/22 22:01 Active IV Insertion STAT Care 10/30/22 22:01 Active CBC W DIFF Stat Lab 10/30/22 21:55 Completed CMP Stat Lab 10/30/22 21:55 Completed CULTURE,URINE Stat Lab 10/30/22 21:49 Received TROPONIN Q4H Lab 10/30/22 21:55 Received TROPONIN Q4H Lab 10/31/22 02:15 Ordered TROPONIN Q4H Lab 10/31/22 06:15 Ordered UA W/RFX UR CULTURE Stat Lab 10/30/22 21:49 Completed Medication Summary Generic Name Dose Route Start Last Admin Trade Name Freq PRN Reason Stop Dose Admin Ceftriaxone Sodium/Dextrose 1 g in 50 mls @ 100 mls/hr 10/30/22 22:42 Rocephin 1 Gm-D5w 50 Ml Bag IV 10/30/22 23:11 STAT STA Lab/Rad Data: Laboratory Result Diagrams 10/30/22 21:55 10/30/22 21:55 Laboratory Results 09/11/1310/30/22 10/30/22 Range/Units 21:55 21:55 21:49 WBC 10.8 H (4.0-10.5) x10^3/uL RBC 3.69 L (4.1-5.4) x10^6/uL Hgb 11.5 L (12.0-16.0) g/dL Hct 33.9 L (35-47) % MCV 91.9 (78-100) fL MCH 31.2 (26-32) pg MCHC 33.9 (32-36) g/dL RDW 11.5 (11.5-14.0) % Plt Count 324 (150-450) x10^3/uL MPV 9.0 (7.5-11.0) fL Gran % 50.2 (36.0-66.0) % Immature Gran % (Auto) 0.3 (0.00-0.4) % Nucleat RBC Rel Count 0.0 (0.00-0.1) % Eos # (Auto) 0.53 H (0-0.5) x10^3/uL Immature Gran # (Auto) 0.03 (0.00-0.03) x10^3u/L Absolute Lymphs (auto) 3.90 (1.0-4.6) x10^3/uL Absolute Monos (auto) 0.85 (0.0-1.3) x10^3/uL Absolute Nucleated RBC 0.00 (0.00-0.01) x10^3u/L Lymphocytes % 36.1 (24.0-44.0) % Monocytes % 7.9 (0.0-12.0) % Eosinophils % 4.9 (0.00-5.0) % Basophils % 0.6 (0.0-0.4) % Absolute Granulocytes 5.41 (1.4-6.9) x10^3/uL Basophils # 0.07 (0-0.4) x10^3/uL Sodium 133 L (137-145) mmol/L Potassium 3.9 (3.5-5.1) mmol/L Chloride 96 L (98-107) mmol/L Carbon Dioxide 28 (22-30) mmol/L Anion Gap 12.6 (5-15) MEQ/L BUN 13 (7-17) mg/dL Creatinine 0.69 (0.52-1.04) mg/dL Estimated GFR > 60.0 ML/MIN Glucose 228 H (74-106) mg/dL Calcium 8.7 (8.4-10.2) mg/dL Total Bilirubin 0.20 (0.2-1.3) mg/dL AST 33 (14-36) U/L ALT 22 (0-35) U/L Alkaline Phosphatase 110 (38-126) U/L Serum Total Protein 7.3 (6.3-8.2) g/dL Albumin 4.2 (3.5-5.0) g/dL Urine Color Yellow (Yellow) Urine Appearance Clear (Clear) Urine pH 6.5 (4.6-8.0) Ur Specific [place] 1.010 (1.005-1.030) Urine Protein Negative (Negative) Urine Glucose (UA) Negative (Negative) mg/dL Urine Ketones Negative (Negative) Urine Blood Trace (Negative) Urine Nitrite Negative (Negative) Urine Bilirubin Negative (Negative) Urine Urobilinogen 0.2 (0.2) mg/dL Ur Leukocyte Esterase Large A (Negative) U Hyaline Cast (Auto) NONE SEEN (0-2) /LPF Urine Microscopic RBC 0-2 (0-5) /HPF Urine Microscopic WBC 21-50 A (0-5) /HPF Ur Epithelial Cells None Seen (None Seen) /HPF Urine Bacteria None Seen (None Seen) /HPF Urine Culture Reflexed YES (NO) - Progress Progress: improved Counseled pt/family regarding: lab results, diagnosis, need for follow-up Medical Desision Making - Diagnostic Testing Diagnostic test were ordered, analyzed, and reviewed by me: Yes - Risk of complications Minimal Risk: Minimal risk of morbidity Low Risk: Low risk of morbidity from additional dx testing or treatment - Departure Departure Disposition: Home Clinical Impression: UTI (urinary tract infection) Qualifiers: Urinary tract infection type: acute pyelonephritis Qualified Code(s): N10 - Acute pyelonephritis Condition: Stable Critical Care Time: No Referrals: JANELLE AGOSTO MD [Primary Care Provider] - Follow up/PCP as directed Instructions: Urinary Tract Infection, Adult (DC) Additional Instructions: Discharge/Care Plan SARAWILLIAM MERA was seen on 10/30/22 in the Emergency Room. The patient was counseled regarding Diagnosis,Lab results, Imaging studies, need for follow up and when to return to the Emergency Room. Prescriptions given: Discharge Note I have spoken with the patient and/or caregivers. I have explained the patient's condition, diagnosis and treatment plan based on the information available to me at this time. I have answered the patient's and/or caregiver's questions and addressed any concerns. The patient and/or caregivers have as good understanding of the patient's diagnosis, condition and treatment plan as can be expected at this point. The vital signs have been stable. The patient's condition is stable and appropriate for discharge from the emergency department. The patient will pursue further outpatient evaluation with the primary care physician or other designated or consulting physician as outlined in the discharge instructions. The patient and/or caregivers are agreeable to this plan of care and follow-up instructions have been explained in detail. The patient and/or caregivers have received these instruction. The patient/and or caregivers are aware that any significant change in condition or worsening of symptoms should prompt an immediate return to this or the closest emergency department or call 911. SARAWILLIAM SAMARIA was seen on 10/30/22 n the Emergency Room. At that time you were treated for an emergent condition, during your visit Laboratory, Radiology and/or other procedures may have been ordered. It is very important that you follow-up with your Primary Care Physician JANELLE AGOSTO within the next 24-48 hours to review your Emergency Room visit and the final results of testing that was ordered. Some test results such as Urine Cultures, Blood Cultures, and other cultures if ordered will not be finalized for 24-48 hours. If you do not have a Primary Care Provider please call the medical records department at [phone] ext [phone] to obtain a copy of your results or you may sign into our patient portal to obtain these results by visiting us @ [email or web address] and completing the following steps: 1. Click on the Patient Portal link 2. Click the Patient Self Enrollment Link to complete the enrollment form and entering your 3. Once the enrollment form is completed you will receive an email with a temporary ID and password at the email address you provided. 4. Next choose a user name and password. Your user name must be at least 4 characters long and your password must be at least 4 characters long. 5. Choose a security question from the list and provide your answer to the question. If you already have signed into the Health Portal you may access your Health Care Information 13/09 by the following steps: 1. Login to our website @ [email or web address] 2. Enter your original user name and password. FAQS The [facility] Health Portal is an online tool that contains your Lab Results, Radiology Reports, Visit History, Discharge Instructions and Health Summary Lab and Radiology Results will not be available for 72 hours on the portal. The Portal is a secure site, passwords are encryted and URLs are re-written so they cannot be copied and pasted. You and authorized family members are the only ones who can access your Portal. Also there is a timeout feature that protects your information if you leave the Portal page open. If you have technical difficulty please use the Contact Us link on the page this will allow you to submit any questions you have regarding the Portal or you may contact the Medical Record Department at [phone] ext [phone]. URINARY TRACT INFECTION 1. You will need to drink plenty of fluids in order to keep your urinary system flushed. These fluids should mainly consist of water and juices. 2. Take medications as directed. You need to completely finish any antiobiotic prescription given. 3. Try to avoid coffee, tea, alcohol, and seasoned foods as they may cause bladder irritation. 4. If signs and symptoms persist after 3-4 days, you will need to follow up with your family physician. 5. Female Patients: A. Avoid intercourse for 3-4 days. B. Empty bladder before and after intercourse to reduce risk of re- infection. C. After emptying bladder, wipe from front to back to reduce the risk of re- infection. Prescriptions: Cephalexin Mh 500 mg [Keflex 500 mg] 500 mg PO Q6H #40 cap
== END 2022-10-30 22:58 | disposition home or self-care (01) ==
LOC: ED 21:27
DX: N10 Acute pyelonephritis (principal); R53.1 Weakness; R50.9 Fever, unspecified; E11.9 Type 2 diabetes mellitus without complications; Z79.4 Long term (current) use of insulin; Z79.899 Other long term (current) drug therapy
CPT/HCPCS: 36000; 36415; 80053; 81001; 84484; 85025; 87086; 93005; 93041; 96365; 99284; J0696

== ENCOUNTER 2023-10-09 10:17 | Emergency (ER) | payer MEDICARE ==
[2023-10-09 10:37] VITALS: TEMP 97
[2023-10-09 11:13] LABS: Appearance Turbid (Clear); Bacteria Many /HPF (None Seen); Bilirubin Small (Negative); Blood Small (Negative); Epithelial Cells Rare /HPF (None Seen); Glucose, Urine Negative (Negative); Ketones Trace (Negative); Leukocyte Esterase Large (Negative); Nitrite Negative (Negative); Protein,Urine Dip 100 (Negative); WBC >100 /HPF (0-5)
--- NOTE | 2023-10-09 11:20 | ERPHSYRPT ---
- History of Present Illness Time Seen by Provider: 10/09/23 11:12 Historian: patient, family Exam Limitations: no limitations Patient Subjective Stated Complaint: pt here for possible uti, co lower abd pressure, has hx of uti Triage Nursing Assessment: pt alert, walked in, resp easy, skin w.d.p abd soft but slightly tender to touch, moves all ext well, no edema noted Physician History: pt has recurring UTIs and similar symptoms today but with more abd pain concerning. completed amoxil for this 1 month ago and resolved then but recurred symptoms now. No N or V, No CP or SObreath. Abd soft but general tenderness and no mass or distension. No peritoneal signs. family here as independent source for Hx collaboration. Discussed risks/benefits with pt and family of testing/treatment including, CT abd, CBC. UA, CMP, lactate, lipase and amylase and they wish to proceed. these are ordered. results discussed with pt and family. Timing/Duration: today Activities at Onset: none Quality: burning, fullness, pressure Abdominal Pain Onset Location: suprapubic, generalized abdomen Pain Radiation: no radiation Severity of Pain-Max: moderate Severity of Pain-Current: moderate Modifying Factors: Improves With: nothing Associated Symptoms: other (urinary symptoms) Previous symptoms: different symptoms, recently seen, recently treated Allergies/Adverse Reactions: Sulfa (Sulfonamide Antibiotics) Allergy (Severe, Verified 10/09/23 10:34) Rash metformin Allergy (Verified 10/09/23 10:37) Home Medications: Aspirin EC 81 mg [Ecotrin 81 mg] 81 mg PO DAILY 11/02/16 [History] Cyanocobalamin (Vitamin B-12) [B-12] 1,000 mcg PO DAILY 11/02/16 [History] Esomeprazole Magnesium [Nexium] 40 mg PO DAILY 11/02/16 [History] Insulin Aspart [Novolog Flexpen] 3 unit SQ TIDWMEALS 11/02/16 [History] Multivitamin [Multi-Vitamin Daily] 1 ea PO DAILY 11/02/16 [History] Raloxifene HCl 60 mg [Evista 60 MG] 60 mg PO DAILY 11/02/16 [History] Rosuvastatin Calcium [Crestor] 5 mg PO HS 11/02/16 [History] Trazodone HCl 50 mg [Desyrel 50 mg] 50 mg PO QHS 01/15/18 [History] Cholecalciferol (Vitamin D3) [Vitamin D3] 2,000 units PO DAILY 11/22/20 [History] Metoprolol Tartrate 50 mg [Lopressor 50 MG] 50 mg PO DAILY 11/22/20 [History] Insulin Degludec [Tresiba Flextouch U-200] 12 unit SQ DAILY 10/30/22 [History] Losartan/Hydrochlorothiazide [Losartan-Hctz 100-12.5 mg Tab] 1 tab PO DAILY 10/30/22 [History] Hx Tetanus, Diphtheria Vaccination/Date Given: No (unsure) Hx Influenza Vaccination/Date Given: Yes Hx Pneumococcal Vaccination/Date Given: Yes Immunizations Up to Date: Yes Travel Risk - International Travel Have you traveled outside of the country in past 3 weeks: No - Emerging Infectious Disease Are you exhibiting symptoms associated with any current EIDs: No - Review of Systems Constitutional: No Fever, No Chills Eyes: No Symptoms Ears, Nose, & Throat: No Symptoms Respiratory: No Cough, No Dyspnea Cardiac: No Chest Pain, No Edema, No Syncope Abdominal/Gastrointestinal: Abdominal Pain, No Nausea, No Vomiting, No Diarrhea Genitourinary Symptoms: Dysuria, Frequency, Urgency Musculoskeletal: No Back Pain, No Neck Pain Skin: No Rash Neurological: No Dizziness, No Focal Weakness, No Sensory Changes Psychological: No Symptoms Endocrine: No Symptoms Hematologic/Lymphatic: No Symptoms Immunological/Allergic: No Symptoms All Other Systems: Reviewed and Negative - Past Medical History Pertinent Past Medical History: Yes Neurological History: Other ENT History: Cataracts Cardiac History: Other Respiratory History: No Pertinent History Endocrine Medical History: Diabetes Type II, Other Musculoskeletal History: No Pertinent History GI Medical History: GERD, Hernia History: Other Psycho-Social History: No Pertinent History Female Reproductive Disorders: No Pertinent History 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 - Past Surgical History Past Surgical History: Yes Neuro Surgical History: No Pertinent History Cardiac: No Pertinent History Respiratory: No Pertinent History Gastrointestinal: No Pertinent History Genitourinary: No Pertinent History Musculoskeletal: Other Female Surgical History: Tubal Ligation Other Surgical History: back,hand, egd with dilitation, bilateral feet - Social History Smoking Status: Former smoker Exposure to second hand smoke: No Drug Use: none Patient Lives Alone: Yes - Social Determinants of Health Will the patient participate in the screening: Declined to provide - Nursing Vital Signs Nursing Vital Signs: Initial Vital Signs Temperature 97.0 F 10/09/23 10:35 Pulse Rate 83 10/09/23 10:35 Respiratory Rate 18 10/09/23 10:35 Blood Pressure 163/87 10/09/23 10:35 O2 Sat by Pulse Oximetry 98 10/09/23 10:35 Pain Scale Pain Intensity 3 - Physical Exam General Appearance: no apparent distress, alert Eye Exam: PERRL/EOMI, eyes nml inspection Ears, Nose, Throat Exam: normal ENT inspection, pharynx normal, moist mucous membranes Neck Exam: normal inspection, non-tender, supple, full range of motion Respiratory Exam: normal breath sounds, lungs clear, No respiratory distress Cardiovascular Exam: regular rate/rhythm, normal heart sounds Gastrointestinal/Abdomen Exam: soft, tenderness, guarding, No distention, No mass Back Exam: normal inspection, normal range of motion, No CVA tenderness, No vertebral tenderness Extremity Exam: normal inspection, normal range of motion, pelvis stable Neurologic Exam: alert, oriented x 3, cooperative, normal mood/affect, nml cerebellar function, sensation nml, No motor deficits Skin Exam: normal color, warm, dry SpO2: 98 - Course Nursing assessment & vital signs reviewed: Yes - CT Exams Abdomen/Pelvis CT Interpretation: Tele-radiologist Report, Other (diverticulitis) Ordered Tests: Active Orders 24 hr Category Date Time Status ABDOMEN AND PELVIS W/0 CONTRAS [CT] Stat Exams 10/09/23 11:37 Completed AMYLASE Stat Lab 10/09/23 12:10 Completed CBC W DIFF Stat Lab 10/09/23 12:10 Completed CMP Stat Lab 10/09/23 12:10 Completed CULTURE,URINE Stat Lab 10/09/23 10:53 Received LIPASE Stat Lab 10/09/23 12:10 Completed Lactic Acid Stat Lab 10/09/23 11:23 Completed UA W/RFX UR CULTURE Stat Lab 10/09/23 10:53 Completed UA W/RFX UR CULTURE Stat Lab 10/09/23 11:33 Ordered Medication Summary Discontinued Medications Generic Name Dose Route Start Last Admin Trade Name Freq PRN Reason Stop Dose Admin Ceftriaxone Sodium 1 gm in 100 mls @ 200 mls/hr 10/09/23 11:29 10/09/23 12:50 Rocephin 1 Gm / 100 Ml Nacl IV 10/09/23 11:58 Infused STAT ONE Infusion Ceftriaxone Sodium Confirm 10/09/23 11:33 Rocephin 1 Gm / 100 Ml Nacl Administered 10/09/23 11:34 Dose 1 gm in 100 mls @ ud IV .K-MED ONE Lab/Rad Data: Laboratory Result Diagrams 10/09/23 12:10 10/09/23 12:10 Laboratory Results 10/09/23 10/09/23 10/09/23 Range/Units 12:10 12:10 11:23 WBC 14.8 H (3.98-10.04) x10^3/uL RBC 3.54 L (3.93-5.22) x10^6/uL Hgb 11.6 (11.2-15.7) g/dL Hct 33.9 L (34.1-44.9) % MCV 95.8 H (79.4-94.8) fL MCH 32.8 H (25.6-32.2) pg MCHC 34.2 (32.2-35.5) g/dL RDW 12.5 (11.7-14.4) % Plt Count 267 (182-369) x10^3/uL MPV 9.0 L (9.4-12.3) fL Gran % 75.6 H (34.0-71.1) % Immature Gran % (Auto) 0.4 (0.001-0.429) % Nucleat RBC Rel Count 0.0 (0.00-0.2) % Eos # (Auto) 0.13 (0.04-0.36) x10^3/uL Immature Gran # (Auto) 0.06 H (0.001-0.031) x10^3u/L Absolute Lymphs (auto) 2.37 (1.18-3.74) x10^3/uL Absolute Monos (auto) 0.97 H (0.24-0.86) x10^3/uL Absolute Nucleated RBC 0.00 (0.00-0.012) x10^3u/L Lymphocytes % 16.1 L (19.3-51.7) % Monocytes % 6.6 (4.7-12.5) % Eosinophils % 0.9 (0.7-5.8) % Basophils % 0.4 (0.1-1.2) % Absolute Granulocytes 11.16 H (1.56-6.13) x10^3/uL Basophils # 0.06 (0.01-0.08) x10^3/uL Sodium 134 L (135-145) mmol/L Potassium 4.3 (3.5-5.1) mmol/L Chloride 98 (98-107) mmol/L Carbon Dioxide 30 (22-30) mmol/L Anion Gap 10.5 (5-15) MEQ/L BUN 14 (7-17) mg/dL Creatinine 0.92 (0.52-1.04) mg/dL Estimated GFR 61.8 ML/MIN Glucose 171 H (74-106) mg/dL Lactic Acid 0.9 (0.4-2.0) Calcium 9.7 (8.4-10.2) mg/dL Total Bilirubin 0.90 (0.2-1.3) mg/dL AST 36 (14-36) U/L ALT 27 (0-35) U/L Alkaline Phosphatase 55 (38-126) U/L Serum Total Protein 7.2 (6.3-8.2) g/dL Albumin 4.1 (3.5-5.0) g/dL Amylase 93 (30-110) U/L Lipase 61 (23-300) U/L Urine Color (Yellow) Urine Appearance (Clear) Urine pH (4.6-8.0) Ur Specific [place] (1.005-1.030) Urine Protein (Negative) Urine Glucose (UA) (Negative) mg/dL Urine Ketones (Negative) Urine Blood (Negative) Urine Nitrite (Negative) Urine Bilirubin (Negative) Urine Urobilinogen (0.2) mg/dL Ur Leukocyte Esterase (Negative) U Hyaline Cast (Auto) (0-2) /LPF Urine Microscopic RBC (0-5) /HPF Urine Microscopic WBC (0-5) /HPF Ur Epithelial Cells (None Seen) /HPF Urine Bacteria (None Seen) /HPF Urine Culture Reflexed (NO) 10/09/23 Range/Units 10:53 WBC (3.98-10.04) x10^3/uL RBC (3.93-5.22) x10^6/uL Hgb (11.2-15.7) g/dL Hct (34.1-44.9) % MCV (79.4-94.8) fL MCH (25.6-32.2) pg MCHC (32.2-35.5) g/dL RDW (11.7-14.4) % Plt Count (182-369) x10^3/uL MPV (9.4-12.3) fL Gran % (34.0-71.1) % Immature Gran % (Auto) (0.001-0.429) % Nucleat RBC Rel Count (0.00-0.2) % Eos # (Auto) (0.04-0.36) x10^3/uL Immature Gran # (Auto) (0.001-0.031) x10^3u/L Absolute Lymphs (auto) (1.18-3.74) x10^3/uL Absolute Monos (auto) (0.24-0.86) x10^3/uL Absolute Nucleated RBC (0.00-0.012) x10^3u/L Lymphocytes % (19.3-51.7) % Monocytes % (4.7-12.5) % Eosinophils % (0.7-5.8) % Basophils % (0.1-1.2) % Absolute Granulocytes (1.56-6.13) x10^3/uL Basophils # (0.01-0.08) x10^3/uL Sodium (135-145) mmol/L Potassium (3.5-5.1) mmol/L Chloride (98-107) mmol/L Carbon Dioxide (22-30) mmol/L Anion Gap (5-15) MEQ/L BUN (7-17) mg/dL Creatinine (0.52-1.04) mg/dL Estimated GFR ML/MIN Glucose (74-106) mg/dL Lactic Acid (0.4-2.0) Calcium (8.4-10.2) mg/dL Total Bilirubin (0.2-1.3) mg/dL AST (14-36) U/L ALT (0-35) U/L Alkaline Phosphatase (38-126) U/L Serum Total Protein (6.3-8.2) g/dL Albumin (3.5-5.0) g/dL Amylase (30-110) U/L Lipase (23-300) U/L Urine Color Dark Yellow A (Yellow) Urine Appearance Turbid A (Clear) Urine pH 6.0 (4.6-8.0) Ur Specific [place] 1.020 (1.005-1.030) Urine Protein 100 A (Negative) Urine Glucose (UA) Negative (Negative) mg/dL Urine Ketones Trace A (Negative) Urine Blood Small A (Negative) Urine Nitrite Negative (Negative) Urine Bilirubin Small A (Negative) Urine Urobilinogen 1.0 A (0.2) mg/dL Ur Leukocyte Esterase Large A (Negative) U Hyaline Cast (Auto) 20-50 (0-2) /LPF Urine Microscopic RBC 3-5 (0-5) /HPF Urine Microscopic WBC >100 A (0-5) /HPF Ur Epithelial Cells Rare (None Seen) /HPF Urine Bacteria Many A (None Seen) /HPF Urine Culture Reflexed YES (NO) - Progress Progress: improved, re-examined Progress Note: 10/09/23 15:18 discussed risk/benefit with pt and family admission vs outpt tx with AB to also cover UTI and they wish to proceed with cipro/flagyl outpt and have the capacity top make this choice. Counseled pt/family regarding: lab results, diagnosis, need for follow-up, rad results Medical Desision Making - Independent Historian Additional History obtained from: Family - Discussion of managment Reviewed:: Test results, Need for additional workup Agreed on:: Treatment plan, need for follow-up - Diagnostic Testing Diagnostic test were ordered, analyzed, and reviewed by me: Yes Radiological Interpretation: Teleradiologist Report - Risk of complications The pt has a mod risk of morbidity or mortality based on: Need for prescription drug management The pt has a high risk of morbidity or mortality based on: Decision regarding hospitilization or escalation of hosp level of care - Departure Departure Disposition: Home Clinical Impression: Diverticulitis, UTI (urinary tract infection) Condition: Good Critical Care Time: No Referrals: JANELLE AGOSTO MD [Primary Care Provider] - Follow up/PCP as directed Instructions: Urinary Tract Infection, Adult (DC), Diverticulosis (DC), Diverticulitis - Discharge instructions Additional Instructions: we have found both a urinary infection and diverticulitis and will give antibiotics to cover both in most cases , but may need adjustment so followup with your Tuesday for recheck and return meantime if not improving or , vomiting, or dizziness, or increased pain or any other concerns. Prescriptions: Ciprofloxacin [Cipro 500 MG] 500 mg PO BID #20 tablet Metronidazole 500 mg [Flagyl 500 MG] 500 mg PO QID #40 tablet
[2023-10-09 11:21] LABS: ADD URINE CULTURE? YES (NO); Hyaline Casts 20-50 /LPF (0-2)
[2023-10-09] MEDS ORDERED: ROCEPHIN 1 GM / 100 ML NaCl 1 GM/100 ML IVPB IV ONE (11:33)
[2023-10-09] MEDS: ROCEPHIN 1 GM / 100 ML NaCl 1 GM/100 ML IVPB IV ONE (11:51)
[2023-10-09 11:54] VITALS: RESP 16
[2023-10-09 12:11] LABS: Absolute Neutrophil Ct (ANC) 11.16 x10^3/uL (1.56-6.13); BASOPHIL % 0.4 % (0.1-1.2); Basophil (Absolute #) 0.06 x10^3/uL (0.01-0.08); Eosinophil % 0.9 % (0.7-5.8); Eosinophil (Absolute #) 0.13 x10^3/uL (0.04-0.36); Hematocrit 33.9 % (34.1-44.9); Hemoglobin 11.6 g/dL (11.2-15.7); IMMATURE GRAN # 0.06 x10^3u/L (0.001-0.031); IMMATURE GRAN % 0.4 % (0.001-0.429); Lymphocyte (Absolute #) 2.37 x10^3/uL (1.18-3.74); Lymphocytes % 16.1 % (19.3-51.7); Mean Cell Volume 95.8 fL (79.4-94.8); Mean Corpuscular Hemoglobin 32.8 pg (25.6-32.2); Mean Corpuscular Hgb Concent. 34.2 g/dL (32.2-35.5); Monocyte (Absolute #) 0.97 x10^3/uL (0.24-0.86); Monocytes % 6.6 % (4.7-12.5); Neutrophil % 75.6 % (34.0-71.1); Platelet Count 267 x10^3/uL (182-369); Red Blood Count 3.54 x10^6/uL (3.93-5.22); Red Cell Distribution Width 12.5 % (11.7-14.4); White Blood Count 14.8 x10^3/uL (3.98-10.04)
[2023-10-09 12:19] VITALS: PULSE 76
[2023-10-09 12:27] LABS: ALBUMIN 4.1 g/dL (3.5-5.0); ANION GAP 10.5 MEQ/L (5-15); BILIRUBIN,TOTAL 0.9 mg/dL (0.2-1.3); Calcium 9.7 mg/dL (8.4-10.2); Creatinine 1 0.92 mg/dL (0.52-1.04); EST GLOMERULAR FILTRATION RATE 61.8 ML/MIN; Potassium 4.3 mmol/L (3.5-5.1); Total Protein 7.2 g/dL (6.3-8.2)
--- NOTE | 2023-10-09 12:31 | XRAY ---
CLINICAL HISTORY: abd pain and tenderness COMPARISON: compared to the previous study dated 12/19/2020 TECHNIQUE: A CT scan of the abdomen and pelvis was performed without IV contrast. Coronal and sagittal reconstructive images were also obtained. One of the following dose-reduction techniques was utilized for this exam. Automated exposure control, adjustment of the mA and/or kV according to patient size, and use of iterative reconstruction. FINDINGS: Abdomen: The liver is normal in size and measures 13.3 cm. No focal or diffuse parenchymal abnormality. The portal vein, intrahepatic biliary radicals and the bile ducts are normal. Average-sized spleen showing fine punctate calcific foci, likely old granulomatous. The pancreas is unremarkable. The right supra-renal gland shows a well-defined solid nodule (HU 23) measuring 13 mm along the maximum diameter. The kidneys are unremarkable. They are normal in size and shape. No calculi or hydronephrosis. A right renal upper polar exophytic hypodense lesion measuring 13 mm along the maximum diameter, likely a cortical cyst. bilateral mild perirenal fat stranding. The gallbladder is normal. No pericholecystic collection or radio-dense calculi in the gall bladder. The visualized small bowel loops are unremarkable. There is no evidence of significant enlargement of the mesenteric or retroperitoneal lymph nodes. Sucentimetric para-aortic, aortocaval, left common and external iliac lymph nodes, likely reactive. Axial hiatus hernia is noted. Atherosclerotic changes of the abdominal aorta and both iliac arteries. Pelvis: Multiple colonic diverticular outpouchings are noted, The mid and proximal sigmoid colon shows non-uniform circumferential mural thickening, reaching up to 11 mm, surrounded by fat smudging and stranding. The urinary bladder is unremarkable. The pelvic structures are unremarkable. Uterine vascular calcifications. A vaginal pessary is noted. The pelvic vasculature is unremarkable. Spondylodegenerative changes with mild levoscoliosis. No lytic or sclerotic bone lesions. Unremarkable lower Ct chest cuts. A large hiatus hernia is noted. IMPRESSION: 1. Multiple colonic diverticular outpouchings are noted, The mid and proximal sigmoid colon shows non-uniform circumferential mural thickening, reaching up to 11mm, surrounded by fat smudging and stranding suggestive of acute diverticulitis. (new finding). 2. Right supra-renal solid nodule (stable). 3. An axial hiatus hernia (stable) [facility] ER was called at [phone] at 11:24 AM [employer]CR[employer]PER, 10/09/2023 and Nurse Rachel was informed regarding the presence of Significant Medical Findings in the report. Electronically Signed by: Pamela Arora MD. (10/09/2023 12:28:06 EDT)
[2023-10-09 15:12] VITALS: BP 119/69
[2023-10-09 15:24] VITALS: O2SAT 98
== END 2023-10-09 15:34 | disposition home or self-care (01) ==
LOC: ED 10:17
DX: K57.92 Diverticulitis of intestine, part unspecified, without perforation or abscess without bleeding (principal); N39.0 Urinary tract infection, site not specified; R10.9 Unspecified abdominal pain; E11.9 Type 2 diabetes mellitus without complications; Z79.4 Long term (current) use of insulin; Z79.899 Other long term (current) drug therapy
CPT/HCPCS: 36000; 36415; 74176; 80053; 81001; 82150; 83605; 83690; 85025; 87077; 87086; 87186; 96365; 99284; J0696

== ENCOUNTER 2023-12-03 21:07 | Emergency (ER) | payer MEDICARE ==
[2023-12-03 21:40] VITALS: TEMP 98.1
--- NOTE | 2023-12-03 21:44 | ERPHSYRPT ---
- History of Present Illness Time Seen by Provider: 12/03/23 21:44 Source: patient Exam Limitations: no limitations Patient Subjective Stated Complaint: c/o right sided lower back pain Triage Nursing Assessment: patient brought to ED by with c/o of right sided lower back pain. Patient stated the pain started this morning before she got out of bed and never went away. rates pain 7/10 only when she moves. hypertensive, skin w/n/d, pulses normal, brought in by wheelchair, denies falling, pt doesn't appear to be in any distress at this time. Physician History: The patient presented with acute onset right-sided hip pain that started before they got out of bed. The pain persisted throughout the day, despite the patient's expectation that it would improve. The patient denied any associated numbness or tingling down the leg. They have a history of back surgery involving disc removal, but did not believe this was related to the current hip pain. The patient also reported a history of a bad knee, for which knee replacement has been considered but not yet pursued. The patient was previously seen for a urinary tract infection (UTI) and diverticulitis a few weeks prior to this visit. They completed the prescribed course of antibiotics and denied any current urinary symptoms such as dysuria or hematuria. The patient also reported a history of back surgery involving disc removal, but did not believe this was related to the current hip pain. The patient's pain was exacerbated by certain movements and positions, and they reported difficulty getting around due to the pain. They had not experienced a similar episode before. The patient was advised to take a muscle relaxant and steroids, and to follow up with their primary care provider for physical therapy. Timing/Duration: today Method of Injury: unknown Quality: sharp, stabbing Severity of Pain-Max: moderate Severity of Pain-Current: moderate Modifying Factors: Improves With: rest. Worsens With: movement Associated Symptoms: lower back pain, muscle spasms, No fever, No chills, No urinary incontinence, No loss of bowel control, No problems urinating, No numbness in legs/feet, No tingling in legs/feet Previous symptoms: no prior history Allergies/Adverse Reactions: Sulfa (Sulfonamide Antibiotics) Allergy (Severe, Verified 12/03/23 21:41) Rash metformin Allergy (Verified 10/09/23 10:37) Home Medications: Aspirin EC 81 mg [Ecotrin 81 mg] 81 mg PO DAILY 11/02/16 [History] Cyanocobalamin (Vitamin B-12) [B-12] 1,000 mcg PO DAILY 11/02/16 [History] Esomeprazole Magnesium [Nexium] 40 mg PO DAILY 11/02/16 [History] Insulin Aspart [Novolog Flexpen] 3 unit SQ TIDWMEALS 11/02/16 [History] Multivitamin [Multi-Vitamin Daily] 1 ea PO DAILY 11/02/16 [History] Raloxifene HCl 60 mg [Evista 60 MG] 60 mg PO DAILY 11/02/16 [History] Rosuvastatin Calcium [Crestor] 5 mg PO HS 11/02/16 [History] Trazodone HCl 50 mg [Desyrel 50 mg] 50 mg PO QHS 01/15/18 [History] Cholecalciferol (Vitamin D3) [Vitamin D3] 2,000 units PO DAILY 11/22/20 [History] Metoprolol Tartrate 50 mg [Lopressor 50 MG] 50 mg PO BID 11/22/20 [History] Insulin Degludec [Tresiba Flextouch U-200] 12 unit SQ UD 10/30/22 [History] Calcium Carbonate/Vitamin D3 [Calcium 1,000 + D3 [place]] 1 tab PO DAILY 12/03/23 [History] Diclofenac Sodium [Voltaren Arthritis Pain] 1 applic TOP DAILY 12/03/23 [Hist ory] Folic Acid 1 mg PO DAILY 12/03/23 [History] Melatonin 5 mg PO HS 12/03/23 [History] Valsartan 40 mg PO DAILY 12/03/23 [History] Hx Tetanus, Diphtheria Vaccination/Date Given: No (unsure) Hx Influenza Vaccination/Date Given: Yes Hx Pneumococcal Vaccination/Date Given: Yes Travel Risk - International Travel Have you traveled outside of the country in past 3 weeks: No - Emerging Infectious Disease Are you exhibiting symptoms associated with any current EIDs: No - Review of Systems All Other Systems: Reviewed and Negative - Past Medical History Pertinent Past Medical History: Yes Neurological History: Other ENT History: Cataracts Cardiac History: Other Respiratory History: No Pertinent History Endocrine Medical History: Diabetes Type II, Other Musculoskeletal History: No Pertinent History GI Medical History: GERD, Hernia History: Other Psycho-Social History: No Pertinent History Female Reproductive Disorders: No Pertinent History 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 - Past Surgical History Past Surgical History: Yes Neuro Surgical History: No Pertinent History Cardiac: No Pertinent History Respiratory: No Pertinent History Gastrointestinal: No Pertinent History Genitourinary: No Pertinent History Musculoskeletal: Other Female Surgical History: Tubal Ligation Other Surgical History: back,hand, egd with dilitation, bilateral feet - Social History Smoking Status: Former smoker Exposure to second hand smoke: No Drug Use: none Patient Lives Alone: Yes - Social Determinants of Health Will the patient participate in the screening: Yes Do you worry about a steady place to live?: No Do you have any problems with any of the following?: No known problems In the past 12 months,have you had to go without utilities?: No Transportation Issues: No Has anyone in your support network made you feel unsafe?: No Have you or anyone in your house had to go without enough: No - Nursing Vital Signs Nursing Vital Signs: Initial Vital Signs Temperature 98.1 F 12/03/23 21:25 Pulse Rate 89 12/03/23 21:25 Respiratory Rate 18 12/03/23 21:25 Blood Pressure 169/70 12/03/23 21:25 O2 Sat by Pulse Oximetry 95 12/03/23 21:25 Pain Scale Pain Intensity [right lower 7 back] Pain Intensity 4 - Physical Exam General Appearance: no apparent distress, thin Back Exam: other (previous scar over L4/L5, no midline spine tenderness, no paraspinal tenderness) Extremity Exam: tenderness (right piriformis), No swelling Neurologic Exam: alert, oriented x 3, cooperative Skin Exam: normal color, warm, dry SpO2 Interpretation: normal SpO2: 95 O2 Delivery: Room Air - Course Nursing assessment & vital signs reviewed: Yes Ordered Tests: Active Orders 24 hr Category Date Time Status CULTURE,URINE Stat Lab 12/03/23 22:15 Received UA W/RFX UR CULTURE Stat Lab 12/03/23 22:15 Completed Medication Summary Discontinued Medications Generic Name Dose Route Start Last Admin Trade Name Freq PRN Reason Stop Dose Admin Cyclobenzaprine HCl 10 mg 12/03/23 22:28 12/03/23 22:36 Cyclobenzaprine Hcl 10 Mg Tablet PO 12/03/23 22:29 10 mg STAT ONE Administration Cyclobenzaprine HCl Confirm 12/03/23 22:34 Cyclobenzaprine Hcl 10 Mg Tablet Administered 12/03/23 22:35 Dose 10 mg .ROUTE .STK-MED ONE Methylprednisolone Acetate 80 mg 12/03/23 22:30 12/03/23 22:36 Methylprednisolone Acetate 80 Mg/Ml Vial IM 12/03/23 22:31 80 mg ONCE ONE Administration Methylprednisolone Acetate Confirm 12/03/23 22:34 Methylprednisolone Acetate 80 Mg/Ml Vial Administered 12/03/23 22:35 Dose 80 mg .ROUTE .STK-MED ONE Lab/Rad Data: Laboratory Results 12/03/23 Range/Units 22:15 Urine Color Yellow (Yellow) Urine Appearance Clear (Clear) Urine pH 6.5 (4.6-8.0) Ur Specific [place] 1.015 (1.005-1.030) Urine Protein Negative (Negative) Urine Glucose (UA) Negative (Negative) mg/dL Urine Ketones Negative (Negative) Urine Blood Negative (Negative) Urine Nitrite Negative (Negative) Urine Bilirubin Negative (Negative) Urine Urobilinogen 0.2 (0.2) mg/dL Ur Leukocyte Esterase Large A (Negative) U Hyaline Cast (Auto) NONE SEEN (0-2) /LPF Urine Microscopic RBC 0-2 (0-5) /HPF Urine Microscopic WBC >100 A (0-5) /HPF Ur Epithelial Cells None Seen (None Seen) /HPF Urine Bacteria Many A (None Seen) /HPF Urine Culture Reflexed YES (NO) - Progress Progress: pain not gone completely Progress Note: Hx and PE consistent with piriformis syndrome. Patient given 80mg IM Depo Medrol and Flexeril 10mg. Home exercises given and advised need for formal PT. Patient also found to have UTI, most recent urine cx showed e coli sensitive to Keflex. Recommend close follow up with PCP. Counseled pt/family regarding: lab results, diagnosis, need for follow-up Medical Desision Making - Diagnostic Testing Diagnostic test were ordered, analyzed, and reviewed by me: Yes Radiological Interpretation: Interpreted by me - Risk of complications The pt has a mod risk of morbidity or mortality based on: Need for prescription drug management - Departure Departure Disposition: Home Clinical Impression: Piriformis syndrome of right side, UTI (urinary tract infection) Condition: Good Critical Care Time: No Referrals: JANELLE AGOSTO MD [Primary Care Provider] - Follow up/PCP as directed Instructions: Exercises for sciatic pain Prescriptions: Cyclobenzaprine HCl 10 mg PO TID PRN 5 Days #15 tablet PRN Reason: Muscle Spasms Cephalexin Mh 500 mg [Keflex 500 mg] 500 mg PO TID 7 Days #21 cap Methylprednisolone Packet [Medrol Dosepack] 4 mg PO UD #30 packet
[2023-12-03] MEDS ORDERED: Cyclobenzaprine 10 MG ONE (22:34)
[2023-12-03] MEDS ORDERED: Depo-Medrol 80 MG/ML ONE (22:34)
[2023-12-03] MEDS: Cyclobenzaprine 10 MG PO ONE (22:36)
[2023-12-03] MEDS: Depo-Medrol 80 MG/ML IM ONE (22:36)
[2023-12-03 23:16] LABS: Appearance Clear (Clear); Bacteria Many /HPF (None Seen); Bilirubin Negative (Negative); Blood Negative (Negative); Epithelial Cells None Seen /HPF (None Seen); Glucose, Urine Negative (Negative); Hyaline Casts NONE SEEN /LPF (0-2); Ketones Negative (Negative); Leukocyte Esterase Large (Negative); Nitrite Negative (Negative); Ph 6.5 (4.6-8.0); Protein,Urine Dip Negative (Negative); RBC 0-2 /HPF (0-5); Specific Gravity 1.015 (1.005-1.030); Urobilinogen 0.2 mg/dL (0.2); WBC >100 /HPF (0-5)
[2023-12-03 23:46] VITALS: BP 118/56; PULSE 97; RESP 18
[2023-12-04 03:08] VITALS: O2SAT 95
== END 2023-12-03 23:40 | disposition home or self-care (01) ==
LOC: ED 21:07
DX: G57.01 Lesion of sciatic nerve, right lower limb (principal); N39.0 Urinary tract infection, site not specified; E11.42 Type 2 diabetes mellitus with diabetic polyneuropathy; Z79.52 Long term (current) use of systemic steroids; Z79.4 Long term (current) use of insulin; Z79.899 Other long term (current) drug therapy
CPT/HCPCS: 81001; 87077; 87086; 87186; 96372; 99283; A9270-GY

== ENCOUNTER 2024-01-17 20:59 | Emergency (ER) | payer MEDICARE ==
[2024-01-17 21:34] VITALS: TEMP 98.6
[2024-01-17 21:38] LABS: Absolute Neutrophil Ct (ANC) 11.02 x10^3/uL (1.56-6.13); BASOPHIL % 0.3 % (0.1-1.2); Basophil (Absolute #) 0.04 x10^3/uL (0.01-0.08); Eosinophil % 1.9 % (0.7-5.8); Eosinophil (Absolute #) 0.25 x10^3/uL (0.04-0.36); Hematocrit 32.6 % (34.1-44.9); Hemoglobin 11.4 g/dL (11.2-15.7); IMMATURE GRAN # 0.05 x10^3u/L (0.001-0.031); IMMATURE GRAN % 0.4 % (0.001-0.429); Lymphocyte (Absolute #) 1.22 x10^3/uL (1.18-3.74); Lymphocytes % 9.1 % (19.3-51.7); Mean Cell Volume 91.8 fL (79.4-94.8); Mean Corpuscular Hemoglobin 32.1 pg (25.6-32.2); Mean Platelet Volume 9.1 fL (9.4-12.3); Monocytes % 6.7 % (4.7-12.5); Neutrophil % 81.6 % (34.0-71.1); Platelet Count 268 x10^3/uL (182-369); Red Blood Count 3.55 x10^6/uL (3.93-5.22); Red Cell Distribution Width 12.3 % (11.7-14.4); White Blood Count 13.5 x10^3/uL (3.98-10.04)
[2024-01-17] MEDS ORDERED: Zofran 4 MG/2 ML VIAL ONE (21:39)
[2024-01-17] MEDS: Zofran 4 MG/2 ML VIAL IV ONE (21:42)
[2024-01-17 21:53] LABS: ALBUMIN 4.2 g/dL (3.5-5.0); ANION GAP 14.5 MEQ/L (5-15); BILIRUBIN,TOTAL 0.7 mg/dL (0.2-1.3); Calcium 9.1 mg/dL (8.4-10.2); Creatinine 1 0.85 mg/dL (0.52-1.04); EST GLOMERULAR FILTRATION RATE 67.9 ML/MIN; Potassium 3.8 mmol/L (3.5-5.1); Total Protein 7.4 g/dL (6.3-8.2)
--- NOTE | 2024-01-17 22:32 | ERPHSYRPT ---
- History of Present Illness Time Seen by Provider: 01/17/24 21:40 Source: patient Exam Limitations: no limitations Patient Subjective Stated Complaint: pt states after having flu shot today she has been vomiting. Triage Nursing Assessment: pt alert and oriented, answers questions approp. pt back to room per wheelchair and transfers to stretcher with minimal assist of 1. respirations nonlabored. skin warm and dry. abd soft, pt reports nontender to light palpation. Physician History: 83-year-old female presents to our ED for evaluation of nausea and vomiting. Patient reports she visited with her primary care doctor today. Patient received a flu shot and shortly thereafter went home and began vomiting. Patient unable to tolerate p.o. Otherwise feels well. No chest pain or shortness of breath. No headache no dizziness. No trauma. No fever. Patient has a history of urinary tract infection. Patient had a urinalysis performed at her physician's office. The UA was sent for cultures. Results pending. P atient otherwise feels well. She voices no other complaints or concerns at this time. Portions of this note were created with voice recognition technology. There may be grammatical, spelling, punctuation or sound alike errors Timing/Duration: today Severity: moderate Modifying Factors: Improves With: nothing Associated Symptoms: denies symptoms Allergies/Adverse Reactions: Sulfa (Sulfonamide Antibiotics) Allergy (Severe, Verified 01/17/24 21:35) Rash metformin Allergy (Verified 01/17/24 21:35) Home Medications: Aspirin EC 81 mg [Ecotrin 81 mg] 81 mg PO DAILY 11/02/16 [History] Cyanocobalamin (Vitamin B-12) [B-12] 1,000 mcg PO DAILY 11/02/16 [History] Esomeprazole Magnesium [Nexium] 40 mg PO DAILY 11/02/16 [History] Insulin Aspart [Novolog Flexpen] 3 unit SQ TIDWMEALS 11/02/16 [History] Multivitamin [Multi-Vitamin Daily] 1 ea PO DAILY 11/02/16 [History] Raloxifene HCl 60 mg [Evista 60 MG] 60 mg PO DAILY 11/02/16 [History] Rosuvastatin Calcium [Crestor] 5 mg PO HS 11/02/16 [History] Trazodone HCl 50 mg [Desyrel 50 mg] 50 mg PO QHS 01/15/18 [History] Cholecalciferol (Vitamin D3) [Vitamin D3] 2,000 units PO DAILY 11/22/20 [History] Metoprolol Tartrate 50 mg [Lopressor 50 MG] 50 mg PO BID 11/22/20 [History] Insulin Degludec [Tresiba Flextouch U-200] 12 unit SQ UD 10/30/22 [History] Calcium Carbonate/Vitamin D3 [Calcium 1,000 + D3 Caplet] 1 tab PO DAILY 12/03/23 [History] Diclofenac Sodium [Voltaren Arthritis Pain] 1 applic TOP DAILY 12/03/23 [History] Folic Acid 1 mg PO DAILY 12/03/23 [History] Melatonin 5 mg PO HS 12/03/23 [History] Valsartan 40 mg PO DAILY 12/03/23 [History] Hx Tetanus, Diphtheria Vaccination/Date Given: No (unsure) Hx Influenza Vaccination/Date Given: Yes (01/17/24) Hx Pneumococcal Vaccination/Date Given: Yes Immunizations Up to Date: No Travel Risk - International Travel Have you traveled outside of the country in past 3 weeks: No - Emerging Infectious Disease Are you exhibiting symptoms associated with any current EIDs: Yes Symptoms: Fever, Headaches/Body Aches/, Vomitting - Review of Systems Constitutional: No Symptoms, No Fever, No Chills Eyes: No Symptoms Ears, Nose, & Throat: No Symptoms Respiratory: No Symptoms, No Cough, No Dyspnea Cardiac: No Symptoms, No Chest Pain, No Edema, No Syncope Abdominal/Gastrointestinal: No Symptoms, No Abdominal Pain, No Nausea, No Vomiting, No Diarrhea Genitourinary Symptoms: No Symptoms, No Dysuria Musculoskeletal: No Symptoms, No Back Pain, No Neck Pain Skin: No Symptoms, No Rash Neurological: No Symptoms, No Dizziness, No Focal Weakness, No Sensory Changes Psychological: No Symptoms Endocrine: No Symptoms Hematologic/Lymphatic: No Symptoms Immunological/Allergic: No Symptoms All Other Systems: Reviewed and Negative - Past Medical History Pertinent Past Medical History: Yes Neurological History: No Pertinent History ENT History: Cataracts Cardiac History: High Cholesterol, Hypertension Respiratory History: No Pertinent History Endocrine Medical History: Diabetes Type II Musculoskeletal History: Degenerative Disk Disease, Osteoarthritis GI Medical History: GERD, Hernia History: Other Psycho-Social History: No Pertinent History Female Reproductive Disorders: No Pertinent History Other Medical History: PATIENT REPORTS HX OF BACK SURGERY TO CLEAN OUT CALCIUM BUILD UP L3-L4 >10 YEARS AGO. HAS HAD INJECTION FOR KNEE OA X [address] JEREZ. - Past Surgical History Past Surgical History: Yes Neuro Surgical History: No Pertinent History Cardiac: No Pertinent History Respiratory: No Pertinent History Gastrointestinal: No Pertinent History Genitourinary: No Pertinent History Musculoskeletal: Orthopedic Surgery, Other Female Surgical History: Tubal Ligation Other Surgical History: back,hand, egd with dilitation, bilateral feet - Social History Smoking Status: Former smoker Exposure to second hand smoke: No Drug Use: none Patient Lives Alone: Yes - Social Determinants of Health Will the patient participate in the screening: Yes Do you worry about a steady place to live?: No Do you have any problems with any of the following?: No known problems In the past 12 months,have you had to go without utilities?: No Transportation Issues: No Has anyone in your support network made you feel unsafe?: No Have you or anyone in your house had to go without enough: No - Nursing Vital Signs Nursing Vital Signs: Initial Vital Signs Temperature 98.6 F 01/17/24 21:18 Pulse Rate 105 H 01/17/24 21:18 Respiratory Rate 18 01/17/24 21:18 Blood Pressure 172/78 01/17/24 21:18 O2 Sat by Pulse Oximetry 97 01/17/24 21:18 Pain Scale Pain Intensity 0 - Physical Exam General Appearance: no apparent distress, alert Eye Exam: PERRL/EOMI, eyes nml inspection Ears, Nose, Throat Exam: normal ENT inspection, moist mucous membranes Neck Exam: normal inspection, non-tender, supple, full range of motion Respiratory Exam: normal breath sounds, lungs clear, No respiratory distress Cardiovascular Exam: regular rate/rhythm, normal heart sounds, normal peripheral pulses Gastrointestinal/Abdomen Exam: soft, normal bowel sounds, No tenderness, No mass Back Exam: normal inspection, normal range of motion, No CVA tenderness, No vertebral tenderness Extremity Exam: normal inspection, normal range of motion, pelvis stable Neurologic Exam: alert, oriented x 3, cooperative, normal mood/affect, sensation nml, No motor deficits Skin Exam: normal color, warm, dry, No rash Lymphatic Exam: No adenopathy SpO2 Interpretation: normal SpO2: 97 O2 Delivery: Room Air - Course Nursing assessment & vital signs reviewed: Yes EKG Interpreted by Me: RATE ([id number]), Sinus Rhythm, NORMAL AXIS, NORMAL INTERVALS, NORMAL QRS Ordered Tests: Active Orders 24 hr Category Date Time Status Screw Machine Operator Swiss Type STAT Care 01/17/24 21:26 Active EKG-ER Only STAT Care 01/17/24 21:26 Active IV Insertion STAT Care 01/17/24 21:26 Active Pulse Oximetry (ED) STAT Care 01/17/24 21:26 Active CBC W DIFF Stat Lab 01/17/24 21:30 Completed CMP Stat Lab 01/17/24 21:30 Completed TROPONIN Q4H Lab 01/17/24 21:30 Completed TROPONIN Q4H Lab 01/18/24 00:10 Completed TROPONIN Q4H Lab 01/18/24 05:30 Ordered Medication Summary Discontinued Medications Generic Name Dose Route Start Last Admin Trade Name Freq PRN Reason Stop Dose Admin Ondansetron HCl 4 mg 01/17/24 21:38 01/17/24 21:42 Ondansetron Hcl 4 Mg/2 Ml Vial IV 01/17/24 21:39 4 mg STAT ONE Administration Ondansetron HCl Confirm 01/17/24 21:39 Ondansetron Hcl 4 Mg/2 Ml Vial Administered 01/17/24 21:40 Dose 4 mg .ROUTE .STK-MED ONE Lab/Rad Data: Laboratory Result Diagrams 01/17/24 21:30 01/17/24 21:30 Laboratory Results 01/18/24 01/17/24 01/17/24 Range/Units 00:10 21:30 21:30 WBC (3.98-10.04) x10^3/uL RBC (3.93-5.22) x10^6/uL Hgb (11.2-15.7) g/dL Hct (34.1-44.9) % MCV (79.4-94.8) fL MCH (25.6-32.2) pg MCHC (32.2-35.5) g/dL RDW (11.7-14.4) % Plt Count (182-369) x10^3/uL MPV (9.4-12.3) fL Gran % (34.0-71.1) % Immature Gran % (Auto) (0.001-0.429) % Nucleat RBC Rel Count (0.00-0.2) % Eos # (Auto) (0.04-0.36) x10^3/uL Immature Gran # (Auto) (0.001-0.031) x10^3u/L Absolute Lymphs (auto) (1.18-3.74) x10^3/uL Absolute Monos (auto) (0.24-0.86) x10^3/uL Absolute Nucleated RBC (0.00-0.012) x10^3u/L Lymphocytes % (19.3-51.7) % Monocytes % (4.7-12.5) % Eosinophils % (0.7-5.8) % Basophils % (0.1-1.2) % Absolute Granulocytes (1.56-6.13) x10^3/uL Basophils # (0.01-0.08) x10^3/uL Sodium 136 (135-145) mmol/L Potassium 3.8 (3.5-5.1) mmol/L Chloride 99 (98-107) mmol/L Carbon Dioxide 26 (22-30) mmol/L Anion Gap 14.5 (5-15) MEQ/L BUN 13 (7-17) mg/dL Creatinine 0.85 (0.52-1.04) mg/dL Estimated GFR 67.9 ML/MIN Glucose 138 H (74-106) mg/dL Calcium 9.1 (8.4-10.2) mg/dL Total Bilirubin 0.70 (0.2-1.3) mg/dL AST 42 H (14-36) U/L ALT 34 (0-35) U/L Alkaline Phosphatase 85 (38-126) U/L Troponin I < 0.012 < 0.012 (0.000-0.033) ng/mL Serum Total Protein 7.4 (6.3-8.2) g/dL Albumin 4.2 (3.5-5.0) g/dL 01/17/24 Range/Units 21:30 WBC 13.5 H (3.98-10.04) x10^3/uL RBC 3.55 L (3.93-5.22) x10^6/uL Hgb 11.4 (11.2-15.7) g/dL Hct 32.6 L (34.1-44.9) % MCV 91.8 (79.4-94.8) fL MCH 32.1 (25.6-32.2) pg MCHC 35.0 (32.2-35.5) g/dL RDW 12.3 (11.7-14.4) % Plt Count 268 (182-369) x10^3/uL MPV 9.1 L (9.4-12.3) fL Gran % 81.6 H (34.0-71.1) % Immature Gran % (Auto) 0.4 (0.001-0.429) % Nucleat RBC Rel Count 0.0 (0.00-0.2) % Eos # (Auto) 0.25 (0.04-0.36) x10^3/uL Immature Gran # (Auto) 0.05 H (0.001-0.031) x10^3u/L Absolute Lymphs (auto) 1.22 (1.18-3.74) x10^3/uL Absolute Monos (auto) 0.90 H (0.24-0.86) x10^3/uL Absolute Nucleated RBC 0.00 (0.00-0.012) x10^3u/L Lymphocytes % 9.1 L (19.3-51.7) % Monocytes % 6.7 (4.7-12.5) % Eosinophils % 1.9 (0.7-5.8) % Basophils % 0.3 (0.1-1.2) % Absolute Granulocytes 11.02 H (1.56-6.13) x10^3/uL Basophils # 0.04 (0.01-0.08) x10^3/uL Sodium (135-145) mmol/L Potassium (3.5-5.1) mmol/L Chloride (98-107) mmol/L Carbon Dioxide (22-30) mmol/L Anion Gap (5-15) MEQ/L BUN (7-17) mg/dL Creatinine (0.52-1.04) mg/dL Estimated GFR ML/MIN Glucose (74-106) mg/dL Calcium (8.4-10.2) mg/dL Total Bilirubin (0.2-1.3) mg/dL AST (14-36) U/L ALT (0-35) U/L Alkaline Phosphatase (38-126) U/L Troponin I (0.000-0.033) ng/mL Serum Total Protein (6.3-8.2) g/dL Albumin (3.5-5.0) g/dL - Progress Progress: improved Progress Note: 83-year-old female presents to our ED for evaluation of nausea and vomiting after receiving her influenza vaccine. Physical exam otherwise unremarkable. Patient denied pain. Laboratory workup reveals a mild leukocytosis. Patient received Zofran. Nausea resolved. Patient tolerated p.o. Urinalysis not collected. Patient had a UA ordered by primary care doctor that was sent off for cultures today. Results pending. If abnormal patient's primary care doctor will prescribe antibiotics accordingly. Patient reassessed. She states she feels fine. Patient currently asymptomatic. Troponin negative x 2. EKG sinus rhythm. Will discharge patient home. A prescription for Zofran forwarded to patient's pharmacy in the event that nausea vomiting reoccurs. Patient will follow-up with the primary care doctor within 48 hours for reevaluation. Daughter at bedside. They voiced no other complaints or concerns at this time. Portions of this note were created with voice recognition technology. There may be grammatical, spelling, punctuation or sound alike errors Complexity of problem addressed is moderate acute complicated no critical care time complex of data reviewed and analyzed is moderate. Test ordered chest reviewed results analyzed and correlated clinically with history and physical exam. Risk of complication and or risk of morbidity/mortality of patient management is moderate. A prescription for Zofran forwarded to patient's pharmacy. Vital stable. Time spent to discharge patient is approximately 15 minutes. Plan of care established for shared decision making. No social determinants of health present to impede follow-up. Portions of this note were created with voice recognition technology. There may be grammatical, spelling, punctuation or sound alike errors 01/18/24 01:15 Counseled pt/family regarding: lab results, diagnosis - Departure Departure Disposition: Home Clinical Impression: Nausea and vomiting, Adverse reaction to influenza vaccine Condition: Stable Critical Care Time: No Referrals: JANELLE AGOSTO MD [Primary Care Provider] - Follow up/PCP as directed Instructions: Nausea and Vomiting, Adult ED Prescriptions: Ondansetron ODT 4 MG [Zofran Odt 4 mg] 4 mg PO Q6H PRN PRN #10 tablet PRN Reason: Vomiting
[2024-01-18 01:14] VITALS: O2SAT 97
[2024-01-18 01:21] VITALS: BP 129/53; PULSE 99; RESP 13
== END 2024-01-18 01:34 | disposition home or self-care (01) ==
LOC: ED 20:59
DX: R11.2 Nausea with vomiting, unspecified (principal); T50.B95A Adverse effect of other viral vaccines, initial encounter; E78.5 Hyperlipidemia, unspecified; I10 Essential (primary) hypertension; E11.9 Type 2 diabetes mellitus without complications; Z79.4 Long term (current) use of insulin; Z79.899 Other long term (current) drug therapy
CPT/HCPCS: 36415; 80053; 84484; 85025; 93041; 94760; 96374; 99284; J2405

== ENCOUNTER 2024-05-30 09:33 | Emergency (ER) | payer MEDICARE ==
[2024-05-30 09:50] VITALS: TEMP 96.7
--- NOTE | 2024-05-30 10:12 | ERPHSYRPT ---
- History of Present Illness Time Seen by Provider: 05/30/24 10:00 Source: patient Exam Limitations: no limitations Patient Subjective Stated Complaint: PT states "I recently started to take blood pressure meds and my readings at home have been a little to high." Triage Nursing Assessment: Pt presented alert and oriented X 3, skin pwd. pt ambulates with an upright steady gait, able to speak in clear full sentences. Pt resting comfortably on the bed. Physician History: 84yo f pmhx HTN, DM presents via private vehicle for elevated BP at home. Pt reports her bp was up to 200 systolic this AM. Pt reports she was started on amlodipine 2.5mg daily by her fuse cup expander (Dr Quiroz) last week. Pt reports she has been taking her metoprolol and amlodipine daily as prescribed. Pt denies any vision changes, JEAN-BAPTISTE, cp, sob, n/v. Pt reports she has not had her home bp cuff double checked against her PCPs cuff. Timing/Duration: today Activities at Onset: none Severity of Pain-Max: none Severity of Pain-Current: none Aspirin Treatment Today: 81 mg x 1, provided at home Associated Symptoms: denies symptoms Allergies/Adverse Reactions: Sulfa (Sulfonamide Antibiotics) Allergy (Severe, Verified 01/17/24 21:35) Rash metformin Allergy (Verified 01/17/24 21:35) Home Medications: Aspirin EC 81 mg [Ecotrin 81 mg] 81 mg PO DAILY 11/02/16 [History] Cyanocobalamin (Vitamin B-12) [B-12] 1,000 mcg PO DAILY 11/02/16 [History] Esomeprazole Magnesium [Nexium] 40 mg PO DAILY 11/02/16 [History] Insulin Aspart [Novolog Flexpen] 3 unit SQ TIDWMEALS 11/02/16 [History] Multivitamin [Multi-Vitamin Daily] 1 ea PO DAILY 11/02/16 [History] Raloxifene HCl 60 mg [Evista 60 MG] 60 mg PO DAILY 11/02/16 [History] Rosuvastatin Calcium [Crestor] 5 mg PO HS 11/02/16 [History] Trazodone HCl 50 mg [Desyrel 50 mg] 50 mg PO QHS 01/15/18 [History] Cholecalciferol (Vitamin D3) [Vitamin D3] 2,000 units PO DAILY 11/22/20 [History] Metoprolol Tartrate 50 mg [Lopressor 50 MG] 50 mg PO BID 11/22/20 [History] Insulin Degludec [Tresiba Flextouch U-200] 12 unit SQ UD 10/30/22 [History] Calcium Carbonate/Vitamin D3 [Calcium 1,000 + D3 Caplet] 1 tab PO DAILY 12/03/23 [History] Diclofenac Sodium [Voltaren Arthritis Pain] 1 applic TOP DAILY 12/03/23 [History] Folic Acid 1 mg PO DAILY 12/03/23 [History] Melatonin 5 mg PO HS 12/03/23 [History] Valsartan 40 mg PO DAILY 12/03/23 [History] Amlodipine Besylate [Norvasc] 2.5 mg PO DAILY 05/30/24 [History] Hx Tetanus, Diphtheria Vaccination/Date Given: No (unsure) Hx Influenza Vaccination/Date Given: Yes (01/17/24) Hx Pneumococcal Vaccination/Date Given: Yes Immunizations Up to Date: No Travel Risk - International Travel Have you traveled outside of the country in past 3 weeks: No - Emerging Infectious Disease Are you exhibiting symptoms associated with any current EIDs: No Symptoms: Fever, Headaches/Body Aches/, Vomitting - Review of Systems Constitutional: No Symptoms Eyes: No Symptoms Ears, Nose, & Throat: No Symptoms Respiratory: No Symptoms Cardiac: No Symptoms Abdominal/Gastrointestinal: No Symptoms Genitourinary Symptoms: No Symptoms - Past Medical History Pertinent Past Medical History: Yes Neurological History: No Pertinent History ENT History: Cataracts Cardiac History: High Cholesterol, Hypertension Respiratory History: No Pertinent History Endocrine Medical History: Diabetes Type II Musculoskeletal History: Degenerative Disk Disease, Osteoarthritis GI Medical History: GERD, Hernia History: Other Psycho-Social History: No Pertinent History Female Reproductive Disorders: No Pertinent History Other Medical History: PATIENT REPORTS HX OF BACK SURGERY TO CLEAN OUT CALCIUM BUILD UP L3-L4 >10 YEARS AGO. HAS HAD INJECTION FOR KNEE OA X [address] JEREZ. - Past Surgical History Past Surgical History: Yes Neuro Surgical History: No Pertinent History Cardiac: No Pertinent History Respiratory: No Pertinent History Gastrointestinal: No Pertinent History Genitourinary: No Pertinent History Musculoskeletal: Orthopedic Surgery, Other Female Surgical History: Tubal Ligation Other Surgical History: back,hand, egd with dilitation, bilateral feet - Social History Smoking Status: Former smoker Exposure to second hand smoke: No Drug Use: none - Social Determinants of Health Will the patient participate in the screening: Yes Do you worry about a steady place to live?: No Do you have any problems with any of the following?: No known problems In the past 12 months,have you had to go without utilities?: No Transportation Issues: No Has anyone in your support network made you feel unsafe?: No Have you or anyone in your house had to go w/o enough food: No - Nursing Vital Signs Nursing Vital Signs: Initial Vital Signs Temperature 96.7 F 05/30/24 09:46 Pulse Rate 75 05/30/24 09:46 Respiratory Rate 18 05/30/24 09:46 Blood Pressure 183/74 05/30/24 09:46 O2 Sat by Pulse Oximetry 98 05/30/24 09:46 Pain Scale Pain Intensity 0 - Physical Exam General Appearance: no apparent distress, alert Eye Exam: PERRL/EOMI, eyes nml inspection, No photophobia, No EOM palsy/anisocoria Ears, Nose, Throat Exam: normal ENT inspection Respiratory Exam: normal breath sounds, lungs clear, airway intact, No chest tenderness, No respiratory distress Cardiovascular Exam: regular rate/rhythm, normal heart sounds, normal peripheral pulses Gastrointestinal/Abdomen Exam: soft, normal bowel sounds, No tenderness, No distention Neurologic Exam: alert, oriented x 3, cooperative, normal mood/affect Skin Exam: normal color SpO2 Interpretation: normal SpO2: 98 O2 Delivery: Room Air - Course EKG Interpreted by Me: RATE (73), Sinus Rhythm, Non-specific ST Changes (no change from prior on 01/17/24, not suggestive of acute ischemia), Other (qtcb [id number]) Ordered Tests: Active Orders 24 hr Category Date Time Status EKG-ER Only STAT Care 05/30/24 10:11 Active - Progress Progress: improved Air Movement: good Progress Note: 05/30/24 10:25 ekg sinus rhythm and unchanged from prior in 2023 pt asymptomatic while in the ED BP 142/61 currently plan for discharge home w/ close PCP follow up (Mk) and cardiology (Gabriella) recommend continuing to take blood pressure medications daily as prescribed recommend checking blood pressure at home once daily at the same time every day return to ED if: develop chest pain, develop difficulty breathing, develop headaches, develop vision changes, develop confusion Blood Culture(s) Obtained: No Antibiotics given: No Counseled pt/family regarding: diagnosis, need for follow-up Medical Desision Making - Diagnostic Testing Diagnostic test were ordered, analyzed, and reviewed by me: No - Risk of complications Minimal Risk: Minimal risk of morbidity - Departure Departure Disposition: Home Clinical Impression: Hypertension Qualifiers: Hypertension type: primary hypertension Qualified Code(s): I10 - Essential (primary) hypertension Condition: Stable Critical Care Time: No Referrals: JANELLE AGOSTO MD [Primary Care Provider] - Follow up/PCP as directed Additional Instructions: plan for discharge home w/ close PCP follow up (Mk) and cardiology (Gabriella) recommend continuing to take blood pressure medications daily as prescribed recommend checking blood pressure at home once daily at the same time every day return to ED if: develop chest pain, develop difficulty breathing, develop headaches, develop vision changes, develop confusion
[2024-05-30 10:39] VITALS: BP 144/66; PULSE 72; RESP 18; O2SAT 100
== END 2024-05-30 10:42 | disposition home or self-care (01) ==
LOC: ED 09:33
DX: I10 Essential (primary) hypertension (principal); E78.5 Hyperlipidemia, unspecified; E11.9 Type 2 diabetes mellitus without complications; Z79.4 Long term (current) use of insulin; Z79.899 Other long term (current) drug therapy
CPT/HCPCS: 93005; 99282; 99283

== ENCOUNTER 2025-01-24 14:39 | Emergency (ER) | payer MEDICARE ==
--- NOTE | 2025-01-24 14:43 | ERPHSYRPT ---
- History of Present Illness Time Seen by Provider: 01/24/25 14:42 Source: patient, family Exam Limitations: no limitations Physician History: This is an 84-year-old white female patient brought to the emergency room by private vehicle accompanied by her daughter and is a patient of Dr. Agosto with a complaint of left lower extremity, left foot and left ankle swelling and bruising without known injury. Patient states that she noticed symptoms sometime after Thanksgiving. She has no bleeding or clotting disorders. She denies trauma or injury to this area she is not on any anticoagulation therapy. She has no chest pain. She is not short of breath and she has no cough or hemoptysis. Patient has a history of gastroesophageal reflux disease, hyperlipidemia, hypertension, insulin-dependent diabetes, degenerative disc disease, osteoarthritis, osteoporosis. Method of Injury: unknown Quality: aching Severity of Pain-Max: mild Severity of Pain-Current: mild Lower Extremities Pain: leg: left, foot: left, ankle: left Modifying Factors: Improves With: movement Associated Symptoms: none Allergies/Adverse Reactions: Sulfa (Sulfonamide Antibiotics) Allergy (Severe, Verified 01/17/24 21:35) Rash metformin Allergy (Verified 01/17/24 21:35) Home Medications: Aspirin EC 81 mg [Ecotrin 81 mg] 81 mg PO DAILY 11/02/16 [History] Cyanocobalamin (Vitamin B-12) [B-12] 1,000 mcg PO DAILY 11/02/16 [History] Esomeprazole Magnesium [Nexium] 40 mg PO DAILY 11/02/16 [History] Insulin Aspart [Novolog Flexpen] 3 unit SQ TIDWMEALS 11/02/16 [History] Multivitamin [Multi-Vitamin Daily] 1 ea PO DAILY 11/02/16 [History] Raloxifene HCl 60 mg [Evista 60 MG] 60 mg PO DAILY 11/02/16 [History] Rosuvastatin Calcium [Crestor] 5 mg PO HS 11/02/16 [History] Trazodone HCl 50 mg [Desyrel 50 mg] 50 mg PO QHS 01/15/18 [History] Cholecalciferol (Vitamin D3) [Vitamin D3] 2,000 units PO DAILY 11/22/20 [History] Metoprolol Tartrate 50 mg [Lopressor 50 MG] 50 mg PO BID 11/22/20 [History] Calcium Carbonate/Vitamin D3 [Calcium 1,000 + D3 Caplet] 1 tab PO DAILY 12/03/23 [History] Diclofenac Sodium [Voltaren Arthritis Pain] 1 applic TOP DAILY 12/03/23 [History] Folic Acid 1 mg PO DAILY 12/03/23 [History] Melatonin 5 mg PO HS 12/03/23 [History] Valsartan 80 mg PO BID 12/03/23 [History] Amlodipine Besylate [Norvasc] 2.5 mg PO DAILY 05/30/24 [History] Insulin Glargine,Hum.rec.anlog [Basaglar Tempo Pen U-100] 12 unit SQ BREAKFAST 10/02/24 [History] Hx Tetanus, Diphtheria Vaccination/Date Given: No (unsure) Hx Influenza Vaccination/Date Given: Yes (01/17/24) Hx Pneumococcal Vaccination/Date Given: Yes Travel Risk - International Travel Have you traveled outside of the country in past 3 weeks: No - Emerging Infectious Disease Are you exhibiting symptoms associated with any current EIDs: No Symptoms: Fever, Headaches/Body Aches/, Vomitting - Review of Systems Constitutional: No Symptoms Eyes: No Symptoms Ears, Nose, & Throat: No Symptoms Respiratory: No Symptoms Cardiac: No Symptoms Abdominal/Gastrointestinal: No Symptoms Genitourinary Symptoms: No Symptoms Musculoskeletal: No Symptoms Skin: No Symptoms Neurological: No Symptoms Psychological: No Symptoms Endocrine: No Symptoms Hematologic/Lymphatic: No Symptoms Immunological/Allergic: No Symptoms All Other Systems: Reviewed and Negative - Past Medical History Pertinent Past Medical History: Yes Neurological History: No Pertinent History ENT History: Cataracts Cardiac History: High Cholesterol, Hypertension Respiratory History: No Pertinent History Endocrine Medical History: Diabetes Type II Musculoskeletal History: Degenerative Disk Disease, Osteoarthritis GI Medical History: GERD, Hernia History: Other Psycho-Social History: No Pertinent History Female Reproductive Disorders: No Pertinent History Other Medical History: PATIENT REPORTS HX OF BACK SURGERY TO CLEAN OUT CALCIUM BUILD UP L3-L4 >10 YEARS AGO. HAS HAD INJECTION FOR KNEE OA X [address] JEREZ. - Past Surgical History Past Surgical History: Yes Neuro Surgical History: No Pertinent History Cardiac: No Pertinent History Respiratory: No Pertinent History Gastrointestinal: No Pertinent History Genitourinary: No Pertinent History Musculoskeletal: Orthopedic Surgery, Other Female Surgical History: Tubal Ligation Other Surgical History: back,hand, egd with dilitation, bilateral feet - Social History Smoking Status: Former smoker Exposure to second hand smoke: No Drug Use: none - Social Determinants of Health Will the patient participate in the screening: Yes Do you worry about a steady place to live?: No In the past 12 months,have you had to go without utilities?: No Transportation Issues: No Has anyone in your support network made you feel unsafe?: No Have you or anyone in your house had to go w/o enough food: No - Nursing Vital Signs Nursing Vital Signs: Initial Vital Signs Temperature 98.2 F 01/24/25 14:39 Pulse Rate 77 01/24/25 14:39 Respiratory Rate 14 01/24/25 14:39 Blood Pressure 164/75 01/24/25 14:39 O2 Sat by Pulse Oximetry 98 01/24/25 14:39 Pain Scale Pain Intensity 0 - Physical Exam General Appearance: no apparent distress, alert, anxiety Eyes, Ears, Nose, Throat Exam: normal ENT inspection, moist mucous membranes Neck Exam: normal inspection, non-tender, supple, full range of motion Cardiovascular/Respiratory Exam: chest non-tender, no respiratory distress Gastrointestinal/Abdominal Exam: non-tender Back Exam: normal inspection, normal range of motion, No CVA tenderness, No vertebral tenderness Hips Exam: bilateral: non-tender, normal inspection, normal range of motion, no evidence of injury Legs Exam: left leg: other, bilateral leg: non-tender, normal inspection, normal range of motion, no evidence of injury Knees Exam: bilateral knee: non-tender, normal inspection, normal range of motion, no evidence of injury Ankle Exam: right ankle: non-tender, normal inspection, left ankle: soft tissue tenderness, swelling, bilateral ankle: normal range of motion Foot Exam: right foot: non-tender, normal inspection, left foot: soft tissue tenderness, swelling, bilateral foot: normal range of motion, other (Strong equal bilateral pedal pulses. Feet are warm) Neuro/Tendon Exam: normal sensation, normal motor functions, normal tendon functions Skin Exam: warm, dry SpO2 Interpretation: normal O2 Delivery: Room Air - Course Nursing assessment & vital signs reviewed: Yes Ordered Tests: Active Orders 24 hr Category Date Time Status ANKLE (3 VIEWS) Stat Exams 01/24/25 14:55 Completed FOOT (MINIMUM 3 VIEWS) Stat Exams 01/24/25 14:55 Completed VENOUS UNILAT/LIMITED EXTREMIT [US] Stat Exams 01/24/25 14:56 Taken - Progress Progress: unchanged, re-examined Progress Note: 01/24/25 15:01 My medical decision making and the assignment of low to moderate complexity of this patient's medical issue today is based on review of the patient's past medical history, reviewed patient's medication list, reviewed patient drug allergy list, history presents and physical findings on examination. The workup in this patient includes x-ray of the patient's left foot and left ankle as well as venous Doppler of the left lower extremity. Differential diagnosis includes but is not limited to superficial phlebitis, occult fracture, foot fracture, foot dislocation, ankle fracture, ankle dislocation, DVT left lower extremity 01/24/25 16:01 I interpreted the following preliminary x-ray reports: Left ankle x-ray shows no acute fractures or dislocation. Left foot x-ray shows chronic changes with heel spur but no acute fracture or dislocation. 01/24/25 16:01 The ski patrol officer/technologist provided me with preliminary report. There is no evidence of DVT in the left lower extremity. Counseled pt/family regarding: diagnosis, need for follow-up, rad results Medical Desision Making - Independent Historian Additional History obtained from: Family - Diagnostic Testing Diagnostic test were ordered, analyzed, and reviewed by me: Yes Radiological Interpretation: Interpreted by me, Reviewed by me, Teleradiologist Report - Risk of complications Low Risk: Low risk of morbidity from additional dx testing or treatment - Departure Departure Disposition: Home Clinical Impression: Left leg swelling Condition: Stable Critical Care Time: No Referrals: JANELLE AGOSTO MD [Primary Care Provider, [facility]] - Follow up/PCP as directed Additional Instructions: Continue your medications as prescribed. Call your primary care provider tomorrow, 01/25/2025, to make arrangements for follow-up appointment for further evaluation management. Activity as tolerated. Keep your left leg elevated above the level of your heart when not up and ambulating
[2025-01-24 14:58] VITALS: TEMP 98.2
[2025-01-24 15:01] VITALS: O2SAT 97
--- NOTE | 2025-01-24 15:18 | XRAY ---
Indication: Swelling. Bruising. Comparison: None 3 view left ankle demonstrates osteopenia, small spurring posterior/plantar calcaneus, tiny spurring medial malleolus, moderate scattered vascular calcifications, and mild nonspecific soft tissue swelling. No other bony, articular, or soft tissue abnormalities.
--- NOTE | 2025-01-24 15:18 | XRAY ---
Indication: Swelling. Bruising. Comparison: None 3 nonweightbearing views left foot demonstrates osteopenia, advanced 1st MTP degenerative changes, small heel spurs, and moderate scattered vascular calcifications. No other bony, articular, or soft tissue abnormalities.
--- NOTE | 2025-01-24 16:28 | XRAY ---
Indication: Pain, swelling, and bruising. Two-dimensional sonogram and color Doppler imaging major venous vessels left leg performed. Comparison: October 21, 2023 No thrombus seen in the examined deep venous vessels left leg including greater saphenous vein. Veins demonstrate normal compressibility. Venous waveforms are normal with and without augmentation. Impression: Left leg continues to be negative for DVT.
[2025-01-24 16:40] VITALS: BP 106/57; PULSE 73; RESP 12
== END 2025-01-24 16:42 | disposition home or self-care (01) ==
LOC: ED 14:39
DX: M79.89 Other specified soft tissue disorders (principal); I10 Essential (primary) hypertension; E11.9 Type 2 diabetes mellitus without complications; Z79.4 Long term (current) use of insulin; Z79.899 Other long term (current) drug therapy